=== PATIENT | male | born 1980 | race African-American/Black ===

== ENCOUNTER 2022-08-28 09:35 | Emergency (ER) | payer SELFPAY ==
[2022-08-28 09:46] VITALS: BP 116/88; PULSE 116; RESP 18; TEMP 39.1; O2SAT 100
[2022-08-28] MEDS: KETOROLAC (*BKC) 60 MG/2 ML VIAL IM (10:11)
[2022-08-28 10:34] LABS: Appearance Urine Clear (Clear); Bacteria Urine None Seen /hpf; Bilirubin Urine 1+ (Negative); Blood Urine 1+ (Negative); Color Urine Dark Yellow (Yellow); Glucose Urine UA Negative (Negative); Ketones Urine 1+ mg/dL (Negative); Leukocyte Esterase Ur Trace LEU/UL (Negative); Nitrate Urine Negative (Negative); Non Pathogenic Casts 0-2; Protein Urine Trace mg/dL (Negative); Specific Grav Ur 1.019 (1.001-1.035); Squamous Epithelial Cell Urine Occasional /hpf (Few); WBC Urine 0-5 /hpf
[2022-08-28 10:36] LABS: Add Urine Microscopic? YES
[2022-08-28 10:47] LABS: Strep Group A RT-PCR NOT DETECTED (Negative)
[2022-08-28 11:04] VITALS: BP 104/83; PULSE 107; RESP 16; TEMP 38.6; O2SAT 98
[2022-08-28 12:11] VITALS: BP 121/88; PULSE 94; RESP 18; O2SAT 99
[2022-08-28 12:43] LABS: Influenza A QL RT-PCR Negative (Negative); Influenza B QL RT-PCR Negative (Negative); SARS-CoV-2 RNA PCR Negative
[2022-08-28 13:10] VITALS: BP 129/77; PULSE 98; RESP 18; TEMP 38.8; O2SAT 99
--- NOTE | 2022-08-28 13:23 | ED.FEVER ---
HPI - Fever General Chief Complaint: Fever Stated Complaint: high BP, headache, bodyches, fever, chills Time Seen by Provider: 08/28/22 09:42 History of Present Illness HPI Narrative: Patient is a 42-year-old male who presents ER with fever. Found to have temperature of 102 ?F today. Patient reports body aches with frontal headache as well as sinus congestion postnasal drip. No cough. No known sick contacts. No chest pain or chest pressure. No dyspnea on exertion. He is without abdominal discomfort. He does report some burning urination that may be because he is dry. Related Data Allergies Allergy/AdvReac Type Severity Reaction Status Date / Time No Known Allergies Allergy Verified 08/28/22 09:45 Review of Systems Review of Systems: All systems reviewed & are unremarkable except as noted in HPI and below Constitutional: Constitutional: Denies chills, Denies fatigue and Reports fever(s) ENT: Reports nasal congestion and Reports sore throat Cardiovascular: Cardiovascular: Denies chest pain, Denies rapid heart rate and Denies radiating jaw, neck or arm pain Respiratory: Respiratory: Denies cough and Denies dyspnea Genitourinary: Genitourinary: Denies hematuria, Denies oliguria, Reports dysuria and Denies urinary frequency Musculoskeletal: Musculoskeletal: Reports myalgias, Denies arthralgias and Denies joint swelling Neurologic: Reports headache(s), Denies focal weakness and Denies numbness PMFSH Past Medical History Medical History (Updated 08/28/22 @ 18:51 by Yoseph Bah MD) Healthy adult male Surgical History Surgical History (Updated 08/28/22 @ 18:51 by Yoseph Bah MD) No pertinent past surgical history Exam Narrative: GENERAL: Well-appearing, well-nourished, and in no acute distress. HEAD: Normocephalic, atraumatic. ENT: Mucous membranes moist. No pharyngeal erythema or tonsillar exudate. No tonsillar hypertrophy. Uvula midline and nonedematous. NECK: Supple. Full range of motion without meningismus. CHEST: Clear to auscultation. No respiratory distress. HEART: Tachycardic and regular. Normal peripheral pulses. ABDOMEN: Soft, nontender, nondistended. EXTREMITIES: Normal range of motion. No edema. SKIN: Warm, dry, no rash. NEURO: Alert and oriented x3. PSYCH: Normal mood and affect. 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 Still with some mild frontal headache. No visual changes or numbness or tingling. No neck stiffness. Not felt to be meningitis. Patient has sinus congestion and sore throat and this is felt to be reflective of an upper respiratory infection. Discharge home with supportive therapy. Patient verbalized understanding treatment plan. Vital Signs Vital signs: Vital Signs Temperature 102.3 F H 08/28/22 09:46 Pulse Rate 116 H 08/28/22 09:46 Respiratory Rate 18 08/28/22 09:46 Blood Pressure 116/88 08/28/22 09:46 Pulse Oximetry 100 08/28/22 09:46 Oxygen Delivery Room Air 08/28/22 09:46 Temperature 102 F H 08/28/22 13:10 Pulse Rate 96 08/28/22 13:29 Respiratory Rate 16 08/28/22 13:29 Blood Pressure 124/83 08/28/22 13:29 Pulse Oximetry 100 08/28/22 13:29 Oxygen Delivery Room Air 08/28/22 09:46 MDM - Fever Lab Data Labs: Lab Results 08/28/22 08/28/22 08/28/22 Range/Units 10:09 10:09 10:20 Urine Color Dark yellow (Yellow) Urine Appearance Clear (Clear) Urine pH 6.0 (5.0-9.0) Ur Specific Lyons 1.019 (1.001-1.035) Urine Protein Trace (Negative) mg/dL Urine Glucose (UA) Negative (Negative) mg/dL Urine Ketones 1+ H (Negative) mg/dL Ur Blood (Man) 1+ H (Negative) Urine Nitrate Negative (Negative) Urine Bilirubin 1+ H (Negative) Urine Urobilinogen 2.0 H (<2.0) mg/dL Leukocyte Esterase Rfl Trace H (Negative) CHANDU/UL Urine RBC 3-5 H (0-2) /hpf Urine WBC 0-5 /hpf Ur Squamous Epith Cells Occ
[2022-08-28] MEDS: ACETAMINOPHEN 500 MG TABLET 1000 MG PO (13:26)
[2022-08-28 13:29] VITALS: BP 124/83; PULSE 96; RESP 16; O2SAT 100
== END 2022-08-28 13:35 | disposition home or self-care (01) ==
PROVIDERS: Emergency Provider Emergency Medicine
DX: J06.9 Acute upper respiratory infection, unspecified (principal); Z20.822 Contact with and (suspected) exposure to COVID-19
CPT/HCPCS: 81001; 87636; 87651; 96372; 99283; A9270; J1885

== ENCOUNTER 2022-08-30 19:02 | Emergency (ER) | payer SELFPAY ==
[2022-08-30 19:04] VITALS: BP 158/90; PULSE 95; RESP 16; TEMP 37; O2SAT 100
[2022-08-30 19:34] VITALS: RESP 18
[2022-08-30] MEDS: LORazepam INJ (*CRX) 2 MG/ML VIAL 0.5 MG IV PUSH (20:15)
[2022-08-30] MEDS: SODIUM CHLORIDE 0.9% IV 2,000 ML 999 ML IV CONT (20:15)
[2022-08-30 20:16] VITALS: BP 135/88; PULSE 82; RESP 19; O2SAT 100
--- NOTE | 2022-08-30 20:17 | ED.GENADULT ---
HPI - General Adult General Chief complaint: Extremity Problem,Nontraumatic Stated complaint: upper extremities locking up Time Seen by Provider: 08/30/22 19:21 History of Present Illness HPI narrative: This is a 42-year-old male presenting to ED with a chief complaint of his upper body locking up. Patient was diagnosed with a URI at our hospital several days ago. He was discharged on multiple medications. He took double his normal dose of pseudoephedrine. afterwards he became feeling very anxious and felt tingling around his mouth and cramping in his hands. He is concerned that he is having a stroke. Denies weakness, facial droop, dysphagia dysarthria or any other neurologic deficit. No fever chills chest pain difficulty breathing, abdominal pain. Related Data Allergies Allergy/AdvReac Type Severity Reaction Status Date / Time No Known Allergies Allergy Verified 08/30/22 19:33 [facility], [facility] Past Medical History Medical History Healthy adult male Surgical History Surgical History No pertinent past surgical history Exam Narrative: APPEARANCE: No apparent distress. Head: atraumatic. EYES: EOMI, NOSE: Atraumatic NECK: Trachea midline RESPIRATORY: No increased rate of breathing, clear to auscultation CARDIOVASCULAR: RRR, ABDOMINAL: Non-distended MUSCULOSKELETAl: No obvious deformities NEURO: Alert. Cranial nerves 2-12 grossly intact. Sensation light touch, motor function cerebellar function intact for 4 extremities. Gait exam was normal. SKIN:: Warm, dry. Normal color PSYCHIATRIC: anxious Course Vital Signs Vital signs: Vital Signs Temperature 98.6 F 08/30/22 19:04 Pulse Rate 95 08/30/22 19:04 Respiratory Rate 16 08/30/22 19:04 Blood Pressure 158/90 H 08/30/22 19:04 Pulse Oximetry 100 08/30/22 19:04 Oxygen Delivery Room Air 08/30/22 19:04 Temperature 98.6 F 08/30/22 19:04 Pulse Rate 95 08/30/22 19:04 Respiratory Rate 18 08/30/22 19:34 Blood Pressure 158/90 H 08/30/22 19:04 Pulse Oximetry 100 08/30/22 19:04 Oxygen Delivery Room Air 08/30/22 19:04 Medical Decision Making [facility] Narrative Medical decision making narrative: -Presentation: 42-year-old male presenting with perioral tingling and hand cramping after taking too much pseudoephedrine. 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 He has no neurologic findings on exam. Presentation is not consistent with stroke. -Procedures: none -Interventions: 0.5 mg Ativan, 2 L normal saline -Shared decision making / Disposition: patient's symptoms are likely due to anxiety and hyperventilation after taking too much pseudoephedrine. Patient has been given fluids and Ativan. Condition is improved. Will be discharged home. Instructed to take appropriate amounts of medication. -RX Vital Signs Vital Signs: Vital Signs Temperature 98.6 F 08/30/22 19:04 Pulse Rate 95 08/30/22 19:04 Respiratory Rate 16 08/30/22 19:04 Blood Pressure 158/90 H 08/30/22 19:04 Pulse Oximetry 100 08/30/22 19:04 Oxygen Delivery Room Air 08/30/22 19:04 Temperature 98.6 F 08/30/22 19:04 Pulse Rate 95 08/30/22 19:04 Respiratory Rate 18 08/30/22 19:34 Blood Pressure 158/90 H 08/30/22 19:04 Pulse Oximetry 100 08/30/22 19:04 Oxygen Delivery Room Air 08/30/22 19:04 Discharge Plan Discharge Clinical Impression: Anxiety, Acute dehydration, Drug side ef
[2022-08-30 20:22] LABS: Glucose Point of Care 76 mg/dl (65-105)
[2022-08-30 20:50] VITALS: PULSE 92; RESP 18; O2SAT 100
[2022-08-30 20:53] VITALS: BP 138/89; PULSE 88; RESP 15; O2SAT 99
[2022-08-30 21:01] VITALS: BP 149/95; PULSE 94; RESP 20; O2SAT 100
== END 2022-08-30 21:49 | disposition home or self-care (01) ==
PROVIDERS: Emergency Provider Emergency Medicine
DX: T44.991A Poisoning by other drug primarily affecting the autonomic nervous system, accidental (unintentional), initial encounter (principal); R20.2 Paresthesia of skin; F41.9 Anxiety disorder, unspecified; E86.0 Dehydration; R25.2 Cramp and spasm
CPT/HCPCS: 82948; 96361; 96374; 99284; J2060; J7030

== ENCOUNTER 2022-09-10 16:13 | Inpatient (IN) | payer SELFPAY ==
[2022-09-10] VITALS (8 sets, daily range): BP systolic 121–148; BP diastolic 75–91; PULSE 90–114; RESP 16–21; TEMP 37.1–39.3; O2SAT 97–100; BMI 34.0
--- NOTE | ~2022-09-10 | CT_ITS ---
Clinical Indication: Fever, cough, abdominal discomfort CT Scan of the Neck, Chest, Abdomen, and Pelvis with Contrast: Technique: Contiguous sections were acquired throughout the neck, chest, abdomen, and pelvis after in travenous administration of 100 cc of Omnipaque 350. Dose reduction technique was used on this scan by utilizing automated exposure control and iterative reconstruction technique. The dose-length produ ct (DLP) was 2262.34 mGy-cm. COMPARISON: Abdominopelvic CT dated 09/10/2022 Findings: Thyroid gland is enlarged and multinodular, most consistent with multinodular goiter. No ly mphadenopathy seen in the neck. No soft tissue mass or fluid collection evident in the neck. Paraphar yngeal fat preserved bilaterally. Parotid and submandibular glands are unremarkable. Visualized paranasal sinuses are clear. Visualized aerodigestive tract unremarkable. Vascular structu res in the neck enhance normally. There is no evidence of any significant mediastinal, hilar or axillary lymphadenopathy. The mediastin al soft tissues and vascular structures appear normal. There is no evidence of pleural or pericardial effusion. The lungs are clear, aside from a calcified right basilar granuloma. The liver, spleen, pancreas, gallbladder, adrenals and kidneys are within normal limits. No evidence of aortic aneurysm. No lymphadenopathy. No bowel obstruction or bowel wall thickening. There is no evidence to suggest acute appendicitis. Urinary bladder is unremarkable. Prostate gland and seminal vesicles are unremarkable. No ascites. Impression: Enlarged multinodular goiter. No other significant findings. Reviewed, dictated and finalized at [facility]. Impression: Enlarged multinodular goiter. No other significant findings.
--- NOTE | ~2022-09-10 | US_ITS ---
US right upper quadrant INDICATION: Elevated liver enzymes PROCEDURE: Realtime right upper abdominal ultrasound. COMPARISON: No prior studies for comparison. FINDINGS: The pancreas is normal without focal mass or pancreatic ductal dilation. Liver echotexture is normal without focal mass or intrahepatic biliary dilatation. There is normal directional flow i n the portal vein. The gallbladder is normal without stones, gallbladder wall thickening or pericholecystic fluid. Comm on bile duct measures 5.7 mm. No sonographic Ruiz's sign. IMPRESSION: 1: Normal limited abdominal ultrasound. Reviewed, dictated and finalized at location B.
--- NOTE | ~2022-09-10 | CT_ITS ---
EXAMINATION: CT abdomen pelvis w con INDICATION: Fever, abscess TECHNIQUE: Computed tomographic images of the abdomen and pelvis were obtained after the administrati on of 100 cc of Omnipaque 350 intravenous contrast. The dose-length product (DLP) was 916.35 mGy-cm. Automated exposure control and iterative reconstruction technique were employed. COMPARISON: None available FINDINGS: Cardiomegaly is noted. There is mild wall thickening of the distal esophagus. There is mild atelectasis of the lung bases. There is a trace pericardial effusion. The liver, spleen, pancreas, g allbladder, and adrenal glands are normal. The kidneys are unremarkable. No pathologically enlarged a bdominal or pelvic lymph nodes are identified. No free intraperitoneal gas or evidence of bowel obstr uction. The appendix is normal. IMPRESSION: 1. Mild wall thickening of the distal esophagus which could reflect esophagitis. 2. Cardiomegaly. Reviewed, dictated and finalized at location F. IMPRESSION: 1. Mild wall thickening of the distal esophagus which could reflect esophagitis . 2. Cardiomegaly.
--- NOTE | ~2022-09-10 | XR_ITS ---
EXAMINATION: XR chest 2V DATE: 09/10/2022 17:17 INDICATION: Fever and bodyaches TECHNIQUE: Frontal and lateral views of the chest are obtained COMPARISON: None available FINDINGS: The lungs are free of acute opacities. No pleural effusion or pneumothorax. Cardiomegaly is noted. There is mild thoracic spondylosis. IMPRESSION: 1. Cardiomegaly. Reviewed, dictated and finalized at location F. IMPRESSION: 1. Cardiomegaly.
[2022-09-10 17:43] LABS: Basophils Percent Auto 0.2 % (0.2-1.2); Eosinophils Percent Auto 0.2 % (0-4.4); Hematocrit 36.9 % (42.0-52.0); Hemoglobin 12.2 g/dL (14.0-18.0); Immature Granulocyte Percent A 0.8 % (0-0.5); Lymphocytes Absolute Auto 1.57 K/mm3 (0.9-3.2); Lymphocytes Percent Auto 12.7 % (18.3-44.2); Mean Corpuscular HGB Conc 33.1 g/dl (32-36); Mean Corpuscular Hemoglobin 28.4 pg (26-34); Mean Platelet Volume 8.5 fl (7.4-10.4); Monocytes Absolute Auto 0.8 K/mm3 (0.1-0.6); Monocytes Percent Auto 6.6 % (2.6-8.5); Neutrophils Absolute Auto 9.8 K/mm3 (1.3-6.7); Neutrophils Percent Auto 79.5 % (45.5-73.1); Platelet Count Result 442 k/mm3 (150-375); Red Blood Count 4.29 M/mm3 (4.6-6.20); Red Cell Distribution Width 13.7 % (11.5-14.5); White Blood Count 12.4 K/mm3 (4.5-10.0)
[2022-09-10] MEDS: SODIUM CHLORIDE 0.9% IV 3,200 ML/1,000 ML BAG 999 ML IV CONT ×4 (17:48→20:13)
--- NOTE | 2022-09-10 17:48 | ED.FEVER ---
HPI - Fever General Chief Complaint: Fever Stated Complaint: fever Time Seen by Provider: 09/10/22 16:50 Source: patient, RN notes reviewed and old records reviewed Mode of arrival: ambulatory Limitations: no limitations History of Present Illness HPI Narrative: This is a 42 year old male who presents for evaluation of fever. He states that he has been having fevers for 3 weeks. HE was evaluated 2 weeks ago for fever and he was diagnosed with URI. He states he has continued to have fever, body aches. HE feels like he is dehydration. He denies chest pain, shortness of breath, vomiting. He reports mild nonproductive cough. He had 1 episode of diarrhea today. He denies foreign travel, insect or tick bites. HE denies camping. HE denies IV drug use. He denies rash or wounds. Related Data Home Medications Medication Instructions Recorded Confirmed Excedrin Extra Strength 250 mg PO Q4-6H 09/10/22 09/10/22 Allergies Allergy/AdvReac Type Severity Reaction Status Date / Time No Known Allergies Allergy Verified 09/10/22 16:47 Review of Systems Constitutional: Constitutional: Reports chills, Reports fever(s) and Denies weakness Cardiovascular: Cardiovascular: Denies syncope, Denies rapid heart rate, Denies irregular heart rhythm, Denies leg edema and Denies dyspnea Respiratory: Respiratory: Denies chest congestion, Reports cough, Denies hemoptysis, Denies excessive phlegm production and Denies dyspnea Gastrointestinal: Gastrointestinal: Denies abdominal pain, Denies hematochezia, Reports diarrhea and Denies vomiting Genitourinary: Genitourinary: Denies hematuria, Denies dysuria, Denies penile discharge and Denies testicular pain Musculoskeletal: Musculoskeletal: Reports myalgias, Denies joint swelling, Denies loss of height and Denies muscle weakness Integumentary/Breasts: Skin/Breast: Denies rash Neurologic: Denies syncope, Denies focal weakness and Denies weakness PMFSH Past Medical History Medical History Healthy adult male Surgical History Surgical History No pertinent past surgical history Family History Family History (Updated 09/10/22 @ 21:46 by Lida Quiroz RN) Other Diabetes mellitus Hypertension Social History Social History Smoking status: Never smoker Alcohol intake: former Substance use: unknown Substance use type: marijuana Lack of Transportation: No Lack of Food: Never True Current Housing: I Have Housing Concerned About Future Housing: No Difficulty Paying Gas/Electric Bills: No Difficulty Paying for Meds: No Currently Unemployed: No Education: High School Diploma/GED Difficulty w/ Childcare or Family Care: No Spiritual care concerns: No Exam Narrative: HEAD: Normocephalic, atraumatic EYES: PERRLA and EOMI, conjunctiva clear without discharge THROAT:Mucous membranes moist, Oropharynx normal without erythema, exudate, peritonsillar swelling or fluctuance NECK: Supple, without lymphadenopathy or mass RESPIRATORY: No respiratory distress, Airway patent, Respirations non-labored, Clear to auscultation without rales, rhonchi or wheeze ABDOMEN: Soft, nontender, nondistended, normal active bowel sounds. No masses. No rebound or guarding, No organomegaly. EXTREMITIES: No edema, normal strength with full range of motion. SKIN: Warm, dry, normal color without rash NEURO: Alert and oriented x3. CN 2-12 grossly intact. No focal deficits. PSYCH: Normal mood and affect. Const: General: no acute distress Nutritional Appearance: obese Orientation/consciousness: patient oriented x3 Other: appears to not feel well Cardio: Rate: tachycardic Rhythm: regular rhythm Heart sounds: no murmurs GI: GI Palp: Yes Soft to palpation, Yes Tenderness to palpation present (GI) (mild dif
[2022-09-10 17:56] LABS: Appearance Urine Clear (Clear); Bacteria Urine None Seen /hpf; Bilirubin Urine 1+ (Negative); Blood Urine Negative (Negative); Color Urine Dark Yellow (Yellow); Glucose Urine UA Negative (Negative); Ketones Urine 1+ mg/dL (Negative); Leukocyte Esterase Ur 1+ LEU/UL (Negative); Need Manual Microscopic Reviewed; Nitrate Urine Positive (Negative); Non Pathogenic Casts 0-2; Protein Urine 1+ mg/dL (Negative); RBC Urine 0-2 /hpf (0-2); Specific Grav Ur 1.021 (1.001-1.035); Squamous Epithelial Cell Urine Occasional /hpf (Few); Urobilinogen Urine >=8.0 mg/dL (<2.0); WBC Urine 0-5 /hpf; pH Urine 6.5 (5.0-9.0)
[2022-09-10 18:00] LABS: INR 1.2; Prothrombin Time 15.5 Seconds (11.1-14.7)
[2022-09-10 18:01] LABS: Partial Thromboplastin Time 32.4 SECONDS (22.3-36.8)
[2022-09-10 18:18] LABS: Alanine Aminotransferase 68 U/L (6-50); Albumin Level 3.6 g/dL (3.5-5.1); Alkaline Phosphatase 197 U/L (38-126); Anion Gap 8 mmol/L (8-16); Aspartate Amino Transferase 46 U/L (17-59); Bilirubin,Total 1.2 mg/dL (0.2-1.3); Blood Urea Nitrogen 9 mg/dL (9-20); CRP 21.7 mg/dL (<1.0); Calcium 8.6 mg/dL (8.4-10.2); Carbon Dioxide 25 mmol/L (22-30); Chloride 101 mmol/L (98-107); Estimated Glomerular Filt Rate > 60; Glucose 95 mg/dL (65-110); Lipase 155 U/L (23-300); Potassium 4.2 mmol/L (3.4-5.0); Sodium 134 mmol/L (137-145)
[2022-09-10 18:19] LABS: Add Urine Microscopic? YES
[2022-09-10 18:26] LABS: Influenza A QL RT-PCR Negative (Negative); Influenza B QL RT-PCR Negative (Negative); SARS-CoV-2 RNA PCR Negative (Negative)
[2022-09-10] MEDS: cefTRIAXone 2 GM/NS 100 ML 2 GM/100 ML BAG IVPB (19:36)
[2022-09-10] MEDS: IBUPROFEN IV 800 MG/200 ML 800 MG/200 ML BAG 400 MG IVPB (20:48)
--- NOTE | 2022-09-10 21:24 | PM.IMHP ---
H&P: HPI History of Present Illness Date/Time: 09/10/22 21:24 Chief Complaint: Fever Narrative: 42-year-old previously healthy male who presents the ER with 3 weeks of intermittent fever. He reports that he came to the ER on the complaining of headache body aches fevers and chills. He is diagnosed with the URI in discharged home. He was also noted to have some high blood pressure at that time. He came back to the ER on the due to his upper body ?locking up?. His symptoms occurred after taking twice the normal dose of pseudoephedrine. He became anxious and was having tingling around his mouth and cramping in his hands. He was given some fluids diagnosed with anxiety, dehydration and side effect of drugs. He returns today due to continued fevers. He reports he has been having fevers daily for 3 weeks. His fevers have been as high as 102. Is been associated with some fatigue. He has had some decreased appetite. He has had generalized myalgias. He has noticed some blood-tinged urine. He denies history of kidney stones. He reports that his UA a few days ago in the ER with demonstrated urine and upon review of records he had 1+ blood. His urine at that time also had trace esterase. He reports some mild dysuria last week but that has since resolved. He denies any penile discharge or exposures to STDs. He states that he is in a committed relationship and denies high risk factors for STDs. He had 1 episode of mushy stools today. He denies any abdominal pain or flank pain. He has had no travel. He has had no tick bites or insect exposure. He has no history of IV drug use. He has not had any rashes or areas of skin breakdown. He reports that his feet are chronically dry and he is concerned that he may have diabetes due to how his feet look. He does not have a history of diabetes but most of his family members have diabetes with associated complications including end-stage renal disease. He does have a symptoms of frequent GERD. He has GERD symptoms up to 3 times a week. He has never had an EGD or colonoscopy he does not have a primary care physician. His fiancee tells him that he snores loudly and and occasionally stops breathing in his sleep. He has never had a sleep study. He denies nasal congestion, rhinorrhea. He does have a mild nonproductive cough current urine was but he denies that the time my evaluation Review of Systems Review of Systems: 12 systems were reviewed with pertinent positives and negatives per HPI. Except as documented in the HPI, all other systems were reviewed and are negative. [facility] Past Medical History Medical History (Updated 09/11/22 @ 08:36 by Ronda Go DO) Obese Surgical History Surgical History (Updated 09/11/22 @ 08:32 by Ronda Go DO) Amputation of finger of right hand The patient had traumatic injury when he closed his hand in a rail car door and had subsequent debridement and trimming of the stump of the pinky of the right hand and reconstruction of the ring finger Family History Family History (Updated 09/11/22 @ 08:34 by Ronda Go DO) Mother Diabetes mellitus End-stage renal disease on hemodialysis Heart disease Hypertension Cerebrovascular accident Father Diabetes mellitus End-stage renal disease on hemodialysis Hypertension Heart disease Sibling Suicide Social History Social History (Updated 09/11/22 @ 08:43 by Ronda Go DO) Social History: Code status: Full code Surrogate decision maker: Valentín Smoking status: Never smoker Alcohol intake: current Drinks per week: 20 Alcohol use details: The patient drinks 2 beers and 1 mixed drink every day and binge drinks on the weekends. Substance use: former Substance use type: marijuana Lack of Transportation: No Lack of Food: Never True Current Housing: I Have Housing Concerned About Future Housing: No Difficulty Paying Gas/Electric Bills: No D
--- NOTE | 2022-09-10 21:55 | ADMGEN ---
This patient, Behzad Wallace, was admitted to Medical Room 347-. Patient/family oriented to hospital policies and general routines including ID bracelet, bed and alarms, visiting hours, pain management, procedures, bathroom and other care routines, personal items, smoking policy, room service/diet, and visiting hours. Information on how to activate the Rapid Response Team has been discussed. Patient/Family are encouraged to report perceived risks to care and to ask questions if they do not understand what they are told or what they should do.
[2022-09-11] VITALS (11 sets, daily range): BP systolic 117–135; BP diastolic 70–81; PULSE 64–107; RESP 14–18; TEMP 36.7–38.8; O2SAT 98–99
[2022-09-11] MEDS: MELATONIN 5 MG TABLET PO (00:08)
[2022-09-11 01:45] LABS: Monoscreen Negative (Negative); Negative Monotest Control Negative (Negative); Positive Monotest Control Positive (Positive)
[2022-09-11] MEDS: ACETAMINOPHEN 325 MG TABLET 650 MG PO ×4 (04:46→23:30)
[2022-09-11 05:45] LABS: Basophils Percent Auto 0.1 % (0.2-1.2); Eosinophils Absolute Auto 0.1 K/mm3 (0-0.3); Eosinophils Percent Auto 0.6 % (0-4.4); Hematocrit 34.2 % (42.0-52.0); Hemoglobin 11.3 g/dL (14.0-18.0); Immature Granulocyte Absolute 0.08 K/mm3 (0.00-0.031); Immature Granulocyte Percent A 0.8 % (0-0.5); Lymphocytes Absolute Auto 0.76 K/mm3 (0.9-3.2); Mean Corpuscular Hemoglobin 28.5 pg (26-34); Mean Corpuscular Volume 86.1 fl (80-100); Mean Platelet Volume 8.2 fl (7.4-10.4); Monocytes Absolute Auto 0.7 K/mm3 (0.1-0.6); Monocytes Percent Auto 7.6 % (2.6-8.5); Neutrophils Absolute Auto 7.9 K/mm3 (1.3-6.7); Neutrophils Percent Auto 82.9 % (45.5-73.1); Platelet Count Result 401 k/mm3 (150-375); Red Blood Count 3.97 M/mm3 (4.6-6.20); Red Cell Distribution Width 13.5 % (11.5-14.5); White Blood Count 9.6 K/mm3 (4.5-10.0)
[2022-09-11 06:00] LABS: Alanine Aminotransferase 91 U/L (6-50); Albumin Level 3.2 g/dL (3.5-5.1); Alkaline Phosphatase 205 U/L (38-126); Anion Gap 3 mmol/L (8-16); Aspartate Amino Transferase 69 U/L (17-59); Bilirubin,Total 1.3 mg/dL (0.2-1.3); Blood Urea Nitrogen 7 mg/dL (9-20); Calcium 8.3 mg/dL (8.4-10.2); Carbon Dioxide 27 mmol/L (22-30); Chloride 104 mmol/L (98-107); Estimated CRCL calculation 195 ml/min; Estimated Glomerular Filt Rate > 60; Glucose 105 mg/dL (65-110); Potassium 4.1 mmol/L (3.4-5.0); Sodium 134 mmol/L (137-145)
[2022-09-11 09:09] LABS: Hemoglobin A1C 5.3 % (<5.7)
[2022-09-11] MEDS: ENOXAPARIN 40 MG/0.4 ML SYRINGE SUB-Q (09:50)
[2022-09-11] MEDS: PANTOPRAZOLE 40 MG TABLET PO (09:50)
--- NOTE | 2022-09-11 11:39 | PM.IMPN ---
Progress Note: A&P Assessment and Plan (1) Sepsis: Code(s): A41.9 - Sepsis, unspecified organism Status: Acute Assessment and Plan: Patient meets sepsis criteria with tachycardia, tachypnea, fever, and leukocytosis. Blood cultures pending. UA was abnormal with leukocytosis trace and nitrates. The patient's urine did not trigger a reflex culture however urine culture has been added. Patient received 2 g of Rocephin in the ER as well as to 30 mL/kilos bolus. Will continue Rocephin 1 g IV daily. (2) Pyuria: Code(s): R82.81 - Pyuria Status: Acute Assessment and Plan: Antibiotics as above (3) Transaminitis: Code(s): R74.01 - Elevation of levels of liver transaminase levels Status: Acute Assessment and Plan: Patient has some transaminitis possibly due to sepsis versus chronic alcohol use. Continue to monitor (4) Alcohol use disorder: Code(s): F10.90 - Alcohol use, unspecified, uncomplicated Status: Acute (5) Snoring: Code(s): R06.83 - Snoring Status: Acute Assessment and Plan: Patient would benefit from outpatient sleep study. Will order ApneaLink for screening. Subjective Date/time seen: 09/11/22 11:39 Interval history: Stable Review of Systems Review of Systems: 12 systems were reviewed with pertinent positives and negatives per HPI. Except as documented in the HPI, all other systems were reviewed and are negative. Exam Narrative: Weight 107.5 kg BMI 34 Const: Other: Obese, no acute distress HENMT: Other: Crowded posterior oropharynx, large neck circumference, mucous membranes are tacky, no oral pharyngeal erythema Eyes: Other: Pupils are equal and reactive, mild scleral icterus, no conjunctival pallor Neck: Other: No lymphadenopathy, no thyromegaly, trachea mid Resp: Other: Clear to auscultation bilaterally, no increased work of breathing Cardio: Other: Sinus tachycardia, 2+ bilateral radial pedal pulses, no JVD GI: Other: Soft, nontender, nondistended, positive bowel sounds Skin: Other: Warm to touch, non jaundice, no pallor Neuro: Other: Alert oriented, speech is clear, no facial asymmetry, no localizing neurologic deficits noted during the course of conversation Extrem: Other: No clubbing, cyanosis or edema, no foot wounds but plantar skin is Dr. With multiple plantar warts noted, grossly overgrown toenails that are sick and discolored Psych: Other: Appropriate mood and affect, pleasant and cooperative, judgment and insight intact Objective Data Vital Signs Vital Signs: Vital Signs - 24 hr 09/10/22 16:25 09/10/22 18:30 09/10/22 16:44 Temperature 102.8 F H 100.9 F H Pulse Rate 114 H 110 H Respiratory Rate 20 21 H Blood Pressure 148/88 H 127/78 Pulse Oximetry 98 97 Oxygen Delivery Room Air 09/10/22 17:35 09/10/22 17:46 09/10/22 18:16 Temperature Pulse Rate 103 H 103 H 98 Respiratory Rate 16 21 H 21 H Blood Pressure 128/91 H 134/88 123/75 Pulse Oximetry 99 98 98 Oxygen Delivery 09/10/22 19:35 09/10/22 21:44 09/11/22 04:32 Temperature 98.8 F 100.3 F H Pulse Rate 90 93 107 H Respiratory Rate 17 18 18 Blood Pressure 121/82 134/79 135/81 Pulse Oximetry 99 100 98 Oxygen Delivery 09/11/22 04:46 09/11/22 06:12 09/11/22 09:51 Temperature 100.3 F H 100.2 F H 101.9 F H Pulse Rate Respiratory Rate Blood Pressure Pulse Oximetry Oxygen Delivery 09/11/22 10:51 Temperature 100.6 F H Pulse Rate Respiratory Rate Blood Pressure Pulse Oximetry Oxygen Delivery Intake/Output Intake/Output: Intake & Output 09/08/22 09/09/22 09/10/22 09/11/22 23:59 23:59 23:59 23:59 Intake Total 3600 / 3600 690 / 690 Balance 3600 / 3600 690 / 690 Meds/Results Medications: Active Medications Generic Name Dose Route Start Last Admin Trade Name Braulioq LOCO Vicente
[2022-09-11] MEDS: LACTATED RINGERS 1,000 ML 100 ML IV CONT (18:18)
[2022-09-11] MEDS: guaiFENesin 600 MG/DEXTROMETHORPHAN 30 MG SR TAB 12 HR 1 TAB PO (19:04)
--- NOTE | 2022-09-11 22:17 | PCRCNOTE ---
Respiratory Therapy: Pt placed on apnea monitor at 2210 on room air.
[2022-09-12] VITALS (15 sets, daily range): BP systolic 119–128; BP diastolic 64–88; PULSE 84–99; RESP 14–22; TEMP 37–39.4; O2SAT 96–99
[2022-09-12] MEDS: ACETAMINOPHEN/ASPIRIN/CAFFEINE 250-250-65 MG TABLET 1 TABLET PO ×2 (02:47→08:58)
[2022-09-12] MEDS: guaiFENesin 600 MG/DEXTROMETHORPHAN 30 MG SR TAB 12 HR 1 TAB PO ×2 (05:00→18:04)
[2022-09-12 06:30] LABS: Hepatitis B Surface Antigen Negative (Negative)
[2022-09-12 06:35] LABS: HAV RESULT Negative (Negative); Hepatitis B Core IgM Result Negative (Negative)
[2022-09-12 06:47] LABS: Hepatitis C Virus Antibody Negative (Negative)
[2022-09-12] MEDS: PANTOPRAZOLE 40 MG TABLET PO (08:58)
[2022-09-12] MEDS: ENOXAPARIN 40 MG/0.4 ML SYRINGE SUB-Q (08:58)
--- NOTE | 2022-09-12 11:00 | PM.IMPN ---
Progress Note: A&P Assessment and Plan (1) Sepsis: Code(s): A41.9 - Sepsis, unspecified organism Status: Acute Assessment and Plan: Blood cultures pending. UA was abnormal with leukocytosis trace and nitrates. The patient's urine did not trigger a reflex culture however urine culture has been added. Will continue Rocephin 1 g IV daily. (2) Pyuria: Code(s): R82.81 - Pyuria Status: Acute Assessment and Plan: Antibiotics as above (3) Transaminitis: Code(s): R74.01 - Elevation of levels of liver transaminase levels Status: Acute Assessment and Plan: Patient has some transaminitis possibly due to sepsis versus chronic alcohol use. Continue to monitor (4) Alcohol use disorder: Code(s): F10.90 - Alcohol use, unspecified, uncomplicated Status: Acute (5) Snoring: Code(s): R06.83 - Snoring Status: Acute Assessment and Plan: Patient would benefit from outpatient sleep study. Will order [facility] for screening. Subjective Date/time seen: 09/12/22 11:00 Interval history: Patient reports headache and body ache Review of Systems Review of Systems: 12 systems were reviewed with pertinent positives and negatives per HPI. Except as documented in the HPI, all other systems were reviewed and are negative. Exam Narrative: Weight 107.5 kg BMI 34 Const: Other: Obese, no acute distress HENMT: Other: Crowded posterior oropharynx, large neck circumference, mucous membranes are tacky, no oral pharyngeal erythema Eyes: Other: Pupils are equal and reactive, mild scleral icterus, no conjunctival pallor Neck: Other: No lymphadenopathy, no thyromegaly, trachea mid Resp: Other: Clear to auscultation bilaterally, no increased work of breathing Cardio: Other: Sinus tachycardia, 2+ bilateral radial pedal pulses, no JVD GI: Other: Soft, nontender, nondistended, positive bowel sounds Skin: Other: Warm to touch, non jaundice, no pallor Neuro: Other: Alert oriented, speech is clear, no facial asymmetry, no localizing neurologic deficits noted during the course of conversation Extrem: Other: No clubbing, cyanosis or edema, no foot wounds but plantar skin is Dr. With multiple plantar warts noted, grossly overgrown toenails that are sick and discolored Psych: Other: Appropriate mood and affect, pleasant and cooperative, judgment and insight intact Objective Data Vital Signs Vital Signs: Vital Signs - 24 hr 09/11/22 14:00 09/11/22 17:35 09/11/22 18:21 Temperature 99.6 F 100.6 F H 100.6 F H Pulse Rate 64 Respiratory Rate 14 Blood Pressure 119/70 Pulse Oximetry 99 09/11/22 19:05 09/11/22 22:00 09/11/22 23:30 Temperature 100.4 F H 98.1 F 100.0 F H Pulse Rate 92 Respiratory Rate 18 Blood Pressure 117/79 Pulse Oximetry 99 09/12/22 01:00 09/12/22 02:42 09/12/22 01:20 Temperature 99.2 F 99.1 F 99.2 F Pulse Rate Respiratory Rate Blood Pressure Pulse Oximetry 09/12/22 06:00 09/12/22 09:00 09/12/22 10:47 Temperature 98.6 F 100.1 F H 99.7 F H Pulse Rate 84 Respiratory Rate 22 H Blood Pressure 119/88 Pulse Oximetry 96 Intake/Output Intake/Output: Intake & Output 09/09/22 09/10/22 09/11/22 09/12/22 23:59 23:59 23:59 23:59 Intake Total 3600 / 3600 1480 / 1480 240 / 240 Balance 3600 / 3600 1480 / 1480 240 / 240 Meds/Results Medications: Active Medications Generic Name Dose Route Start Last Admin Trade Name Freq PRN Reason Stop Dose Admin Acetaminophen 650 mg 09/10/22 21:26 09/11/22 23:30 Acetaminophen 325 Mg Tablet PO 650 mg Q4H PRN Administration Mild Pain (1-3) or Fever Acetaminophen/Aspirin/Caffeine 1 tablet 09/12/22 02:42 09/12/22 08:58 Acetaminophen/Aspirin/Caffeine 250-250-65 Mg Tablet PO 10/11/22 07:14 1 tablet Q4-6H PRN Administration Headache
[2022-09-12] MEDS: ACETAMINOPHEN 325 MG TABLET 650 MG PO ×3 (12:37→22:00)
[2022-09-13] VITALS (13 sets, daily range): BP systolic 106–134; BP diastolic 57–96; PULSE 84–103; RESP 18–20; TEMP 36.8–39.5; O2SAT 97–100
--- NOTE | 2022-09-13 | ECHO_ITS ---
Patient Info Name: Behzad Wallace Age: 42 years : 1980 Gender: Male Ht: 70 in Wt: 236 lbs BSA: 2.34 m2 HR: 94 bpm BP: 125 / 69 mmHg Technical Quality: Fair Exam Date: 09/13/2022 1:40 PM Exam Location: [facility] Pulmonary Exam Room: [facility] Patient Status: Inpatient Admit Date: 09/13/2022 Staff Ordering Physician: Norma Ledezma MD Vocal Music Teacher: Lydia Grace RDCS Attending Provider: Bin Yang MD Referring Physician: Darien HENDRIX; Exam Type: CA echo doppler color flow Study Info Indications - fevers Complete two-dimensional, color flow and Doppler transthoracic echocardiogram is performed. Summary 1. Complete two-dimensional, color flow and Doppler transthoracic echocardiogram is performed. 2. Left ventricular chamber dimension is normal. 3. Left ventricular systolic function is normal, estimated at 60-65%. 4. The left ventricular diastolic function is normal. 5. E/e' 8 is minimally elevated. 6. There is trace mitral valve regurgitation. 7. There is trace tricuspid valve regurgitation. 8. No pulmonary hypertension, estimated pulmonary arterial systolic pressure is 35 mmHg. 9. There is trace pulmonic regurgitation. 10. There is trivial pericardial effusion. Left Ventricle E/e' 8 is minimally elevated. Left ventricular chamber dimension is normal. Left ventricular systolic function is normal, estimated at 60-65%. The left ventricular diastolic function is normal. Right Ventricle Right ventricular chamber dimension is normal. Right ventricular systolic function is normal. Left Atria Left atrial chamber dimension is normal. Right Atria Right atrial chamber dimension is normal. Aortic Valve The aortic valve is trileaflet. There is no aortic valve stenosis. There is no aortic valve regurgitation. Pulmonic Valve There is trace pulmonic regurgitation. Mitral Valve There is no mitral valve stenosis. There is trace mitral valve regurgitation. Tricuspid Valve There is trace tricuspid valve regurgitation. No pulmonary hypertension, estimated pulmonary arterial systolic pressure is 35 mmHg. Pericardium/Pleural There is trivial pericardial effusion. Inferior Vena Cava Normal inferior vena cava with >50% collapse upon inspiration consistent with normal right atrial pressure, 5 mmHg. Aorta The aortic root size at the sinus of Valsalva is normal. Left Ventricular Outflow Tract Name Value Normal LVOT 2D LVOT Diameter 2.1 cm LVOT Doppler LVOT Peak Gradient 5 mmHg LVOT Mean Gradient 2 mmHg LVOT VTI 19 cm LVOT VTI/AV VTI Ratio 1.0 LVOT Stroke Volume 65 ml LVOT CO 15.1 l/min LVOT CI 6.5 l/min/m2 Pulmonic Valve Name Value Normal RVOT Doppler RVOT Peak Gradient 1 mmHg
[2022-09-13] MEDS: ACETAMINOPHEN 325 MG TABLET 650 MG PO ×4 (02:30→18:29)
[2022-09-13] MEDS: ACETAMINOPHEN/ASPIRIN/CAFFEINE 250-250-65 MG TABLET 1 TABLET PO ×2 (03:56→09:17)
[2022-09-13] MEDS: guaiFENesin 600 MG/DEXTROMETHORPHAN 30 MG SR TAB 12 HR 1 TAB PO ×2 (06:16→17:16)
[2022-09-13] MEDS: PANTOPRAZOLE 40 MG TABLET PO (09:18)
[2022-09-13] MEDS: ENOXAPARIN 40 MG/0.4 ML SYRINGE SUB-Q (09:18)
--- NOTE | 2022-09-13 13:17 | PM.IMPN ---
Progress Note: A&P Assessment and Plan (1) Sepsis: Code(s): A41.9 - Sepsis, unspecified organism Status: Acute Assessment and Plan: Blood cultures pending. Uc are negative. ESR and CRP ordered, ECHO ordered. continue Rocephin 1 g IV daily. continue to watch in hospital if fevers do not subside consider LP (2) Pyuria: Code(s): R82.81 - Pyuria Status: Acute Assessment and Plan: Antibiotics as above (3) Transaminitis: Code(s): R74.01 - Elevation of levels of liver transaminase levels Status: Acute Assessment and Plan: Patient has some transaminitis possibly due to sepsis versus chronic alcohol use. Continue to monitor (4) Alcohol use disorder: Code(s): F10.90 - Alcohol use, unspecified, uncomplicated Status: Acute (5) Snoring: Code(s): R06.83 - Snoring Status: Acute Assessment and Plan: Patient would benefit from outpatient sleep study. [employer] for screening. Subjective Date/time seen: 09/13/22 13:17 Interval history: Patient reports body aches and fevers today Review of Systems Review of Systems: No specific complaints Exam Const: Other: Obese, no acute distress Eyes: Other: Pupils are equal and reactive, mild scleral icterus, no conjunctival pallor Neck: Other: No lymphadenopathy, no thyromegaly, trachea mid Resp: Other: Clear to auscultation bilaterally, no increased work of breathing Cardio: Other: Sinus tachycardia, 2+ bilateral radial pedal pulses, no JVD GI: Other: Soft, nontender, nondistended, positive bowel sounds Skin: Other: Warm to touch, non jaundice, no pallor Neuro: Other: Alert oriented, speech is clear, no facial asymmetry, no localizing neurologic deficits noted during the course of conversation Extrem: Other: No clubbing, cyanosis or edema, no foot wounds but plantar skin is Dr. With multiple plantar warts noted, grossly overgrown toenails that are sick and discolored Psych: Other: Appropriate mood and affect, pleasant and cooperative, judgment and insight intact Objective Data Vital Signs Vital Signs: Vital Signs - 24 hr 09/12/22 13:37 09/12/22 14:00 09/12/22 18:04 Temperature 37.6 C H 37.6 C H 39.4 C H Pulse Rate 96 Respiratory Rate 14 Blood Pressure 124/64 Pulse Oximetry 99 Oxygen Delivery 09/12/22 21:00 09/12/22 19:30 09/12/22 21:37 Temperature 37.8 C H 37.8 C H 38.6 C H Pulse Rate 99 Respiratory Rate 18 Blood Pressure 128/73 Pulse Oximetry 99 Oxygen Delivery 09/12/22 22:00 09/12/22 23:03 09/13/22 02:30 Temperature 38.6 C H 37.7 C H 37.9 C H Pulse Rate Respiratory Rate Blood Pressure Pulse Oximetry Oxygen Delivery 09/13/22 03:19 09/13/22 05:24 09/13/22 06:16 Temperature 37.5 C 37.8 C H 37.8 C H Pulse Rate 84 Respiratory Rate 18 Blood Pressure 125/69 Pulse Oximetry 99 Oxygen Delivery 09/13/22 09:19 09/13/22 09:19 09/13/22 11:06 Temperature 37.8 C H 37.8 C H Pulse Rate Respiratory Rate Blood Pressure Pulse Oximetry Oxygen Delivery Room Air 09/13/22 12:06 Temperature 36.8 C Pulse Rate Respiratory Rate Blood Pressure Pulse Oximetry Oxygen Delivery Intake/Output Intake/Output: Intake & Output 09/10/22 09/11/22 09/12/22 09/13/22 23:59 23:59 23:59 23:59 Intake Total 3600 1480 1270 740 Balance 3600 1480 1270 740 Meds/Results Medications: Active Medications Generic Name Dose Route Start Last Admin Trade Name Freq PRN Reason Stop Dose Admin Acetaminophen 650 mg 09/10/22 21:26 09/13/22 11:06 Acetaminophen 325 Mg Tablet PO 650 mg Q4H PRN Administration Mild Pain (1-3) or Fever Acetaminophen/Aspirin/Caffeine 1 tablet 09/12/22 02:42 09/13/22 09:17 Acetaminophen/Aspirin/Caffeine 250-250-65 Mg Tablet PO 10/11/22 07:14 1 tablet Q4-6H PRN Administratio
[2022-09-13 14:40] LABS: Erythrocyte Sedimentation Rate 126 mm/hr (0-20)
[2022-09-13] MEDS: IBUPROFEN 400 MG TABLET 800 MG PO (20:19)
[2022-09-14] VITALS (8 sets, daily range): BP systolic 98–135; BP diastolic 55–81; PULSE 100–110; RESP 14–18; TEMP 37.1–38.7; O2SAT 98–100
[2022-09-14] MEDS: ACETAMINOPHEN 325 MG TABLET 650 MG PO ×3 (05:16→20:47)
[2022-09-14] MEDS: guaiFENesin 600 MG/DEXTROMETHORPHAN 30 MG SR TAB 12 HR 1 TAB PO ×2 (05:16→17:23)
[2022-09-14] MEDS: ENOXAPARIN 40 MG/0.4 ML SYRINGE SUB-Q (09:23)
[2022-09-14] MEDS: PANTOPRAZOLE 40 MG TABLET PO (09:23)
--- NOTE | 2022-09-14 11:25 | PM.IMPN ---
Progress Note: A&P Assessment and Plan (1) Sepsis: Code(s): A41.9 - Sepsis, unspecified organism Status: Acute Assessment and Plan: Blood cultures no growth to date. UA was negative. Do it that ESR is 126. CRP is elevated at at 18. ECHO negative. Had been on Rocephin Ted neck rigidity LFTs are elevated Rickettsial illness possible Empirically start doxycycline. Rocephin CT chest abdomen pelvis CT neck (2) Pyuria: Code(s): R82.81 - Pyuria Status: Acute Assessment and Plan: Antibiotics as above (3) Transaminitis: Code(s): R74.01 - Elevation of levels of liver transaminase levels Status: Acute Assessment and Plan: Patient has some transaminitis possibly due to sepsis versus chronic alcohol use. Continue to monitor (4) Alcohol use disorder: Code(s): F10.90 - Alcohol use, unspecified, uncomplicated Status: Acute (5) Snoring: Code(s): R06.83 - Snoring Status: Acute Assessment and Plan: Patient would benefit from outpatient sleep study. [employer] for screening. Subjective Date/time seen: 09/14/22 11:25 Interval history: Patient still has ongoing fever. Body aches. No joint swelling. No rash no neck pain. Reports headache. Associated with. Workup has been negative. Echo reviewed Review of Systems Review of Systems: All systems reviewed & are unremarkable except as noted in HPI and below Exam Narrative: GENERAL: The patient is well developed, not in acute distress HEENT: Nonicteric sclerae, PERRLA, EOMI. Oropharynx clear. Moist mucous membranes. Conjunctivae appear well perfused. CHEST: Chest wall is nontender. HEART: Regular rate and rhythm without murmur, rubs, or gallops LUNGS: Clear to auscultation bilaterally. no respiratory distress ABDOMEN: Soft, positive bowel sounds, non-tender, no organomegaly. SKIN: No rash, no excessive bruising, petechiae, or purpura. NEUROLOGIC: Cranial nerves II-XII intact, alert and oriented x 3, no gross motor deficits no neck rigidity EXTREMITIES: no edema, cyanosis or clubbing Objective Data Vital Signs Vital Signs: Vital Signs - 24 hr 09/13/22 12:06 09/13/22 14:00 09/13/22 18:29 Temperature 98.3 F 99.0 F 103.1 F H Pulse Rate 103 H Respiratory Rate 18 Blood Pressure 134/96 H Pulse Oximetry 100 Oxygen Delivery 09/13/22 19:40 09/13/22 20:19 09/13/22 21:39 Temperature 102.7 F H 101.5 F H 98.8 F Pulse Rate 96 Respiratory Rate 20 Blood Pressure 106/57 L Pulse Oximetry 97 Oxygen Delivery 09/13/22 20:00 09/14/22 05:15 09/14/22 05:16 Temperature 100.8 F H 100.8 F H Pulse Rate 96 110 H Respiratory Rate 20 16 Blood Pressure 98/55 L Pulse Oximetry 97 98 Oxygen Delivery Room Air 09/14/22 09:27 09/14/22 09:30 Temperature 98.7 F Pulse Rate Respiratory Rate Blood Pressure Pulse Oximetry Oxygen Delivery Room Air Intake/Output Intake/Output: Intake & Output 09/11/22 09/12/22 09/13/22 09/14/22 23:59 23:59 23:59 23:59 Intake Total 1480 1270 1820 590 Balance 1480 1270 1820 590 Meds/Results Medications: Active Medications Generic Name Dose Route Start Last Admin Trade Name Freq PRN Reason Stop Dose Admin Acetaminophen 650 mg 09/10/22 21:26 09/14/22 05:16 Acetaminophen 325 Mg Tablet PO 650 mg Q4H PRN Administration Mild Pain (1-3) or Fever Acetaminophen/Aspirin/Caffeine 1 tablet 09/12/22 02:42 09/13/22 09:17 Acetaminophen/Aspirin/Caffeine 250-250-65 Mg Tablet PO 10/11/22 07:14 1 tablet Q4-6H PRN Administration Headache Doxycycline Hyclate 100 mg 09/14/22 12:00 Doxycycline Hyclate 100 Mg Tablet PO Q12HR DARIUS Enoxaparin Sodium 40 mg 09/11/22 09:00 09/14/22 09:23 Enoxaparin 40 Mg/0.4 Ml Syringe SUB-Q 40 mg DAILY DARIUS Administration Guaifenesin/Dextromethorphan 1 tab 09/11/22 18:00 09/14/22 05:16 Guaifenesin 600 Mg/Dextromethorphan 30 Mg Sr T
[2022-09-14] MEDS: DOXYCYCLINE HYCLATE 100 MG TABLET PO ×2 (12:26→20:00)
[2022-09-14 12:44] LABS: Basophils Percent Auto 0.1 % (0.2-1.2); Eosinophils Percent Auto 0.3 % (0-4.4); Hematocrit 36.4 % (42.0-52.0); Immature Granulocyte Absolute 0.11 K/mm3 (0.00-0.031); Immature Granulocyte Percent A 0.7 % (0-0.5); Lymphocytes Absolute Auto 1.25 K/mm3 (0.9-3.2); Lymphocytes Percent Auto 8.5 % (18.3-44.2); Mean Corpuscular Hemoglobin 28.5 pg (26-34); Mean Corpuscular Volume 86.5 fl (80-100); Mean Platelet Volume 8.5 fl (7.4-10.4); Monocytes Absolute Auto 0.9 K/mm3 (0.1-0.6); Monocytes Percent Auto 6.2 % (2.6-8.5); Neutrophils Absolute Auto 12.4 K/mm3 (1.3-6.7); Neutrophils Percent Auto 84.2 % (45.5-73.1); Platelet Count Result 405 k/mm3 (150-375); Red Blood Count 4.21 M/mm3 (4.6-6.20); Red Cell Distribution Width 13.3 % (11.5-14.5); White Blood Count 14.8 K/mm3 (4.5-10.0)
[2022-09-14 13:15] LABS: Alanine Aminotransferase 72 U/L (6-50); Albumin Level 3.6 g/dL (3.5-5.1); Alkaline Phosphatase 197 U/L (38-126); Anion Gap 9 mmol/L (8-16); Aspartate Amino Transferase 40 U/L (17-59); Bilirubin,Total 0.8 mg/dL (0.2-1.3); Blood Urea Nitrogen 13 mg/dL (9-20); Calcium 8.7 mg/dL (8.4-10.2); Carbon Dioxide 26 mmol/L (22-30); Chloride 99 mmol/L (98-107); Creatine Kinase 57 U/L (55-170); Estimated CRCL calculation 127 ml/min; Estimated Glomerular Filt Rate > 60; Glucose 120 mg/dL (65-110); Magnesium 2.4 mg/dL (1.6-2.3); Potassium 4.2 mmol/L (3.4-5.0); Sodium 134 mmol/L (137-145)
[2022-09-14 13:15] LABS: Appearance Urine Clear (Clear); Bacteria Urine None Seen /hpf; Bilirubin Urine 1+ (Negative); Blood Urine Negative (Negative); Color Urine Dark Yellow (Yellow); Glucose Urine UA Negative (Negative); Ketones Urine Trace mg/dL (Negative); Leukocyte Esterase Ur Trace LEU/UL (NEGATIVE); Need Manual Microscopic Reviewed; Nitrate Urine Positive (Negative); Non Pathogenic Casts 0-2; Protein Urine 1+ mg/dL (Negative); Specific Grav Ur 1.029 (1.001-1.035); Squamous Epithelial Cell Urine Occasional /hpf (Few); WBC Urine 0-5 /hpf (0-3); pH Urine 5.5 (5.0-9.0)
[2022-09-14 13:17] LABS: Add Urine Microscopic? YES
[2022-09-15] VITALS (9 sets, daily range): BP systolic 119–144; BP diastolic 74–84; PULSE 100–113; RESP 18–19; TEMP 36.1–39.4; O2SAT 96–100
[2022-09-15 05:44] LABS: Basophils Percent Auto 0.2 % (0.2-1.2); Eosinophils Absolute Auto 0.1 K/mm3 (0-0.3); Eosinophils Percent Auto 0.4 % (0-4.4); Hematocrit 35.3 % (42.0-52.0); Hemoglobin 11.6 g/dL (14.0-18.0); Immature Granulocyte Absolute 0.12 K/mm3 (0.00-0.031); Immature Granulocyte Percent A 1.1 % (0-0.5); Lymphocytes Absolute Auto 1.62 K/mm3 (0.9-3.2); Lymphocytes Percent Auto 14.5 % (18.3-44.2); Mean Corpuscular HGB Conc 32.9 g/dl (32-36); Mean Corpuscular Hemoglobin 28.6 pg (26-34); Mean Corpuscular Volume 87.2 fl (80-100); Mean Platelet Volume 8.4 fl (7.4-10.4); Monocytes Absolute Auto 0.8 K/mm3 (0.1-0.6); Monocytes Percent Auto 6.9 % (2.6-8.5); Neutrophils Absolute Auto 8.6 K/mm3 (1.3-6.7); Neutrophils Percent Auto 76.9 % (45.5-73.1); Platelet Count Result 408 k/mm3 (150-375); Red Blood Count 4.05 M/mm3 (4.6-6.20); Red Cell Distribution Width 13.4 % (11.5-14.5); White Blood Count 11.2 K/mm3 (4.5-10.0)
[2022-09-15] MEDS: guaiFENesin 600 MG/DEXTROMETHORPHAN 30 MG SR TAB 12 HR 1 TAB PO ×2 (05:47→17:04)
[2022-09-15 05:57] LABS: Alanine Aminotransferase 65 U/L (6-50); Albumin Level 3.6 g/dL (3.5-5.1); Alkaline Phosphatase 182 U/L (38-126); Anion Gap 6 mmol/L (8-16); Aspartate Amino Transferase 37 U/L (17-59); Bilirubin,Total 0.6 mg/dL (0.2-1.3); Blood Urea Nitrogen 10 mg/dL (9-20); Carbon Dioxide 27 mmol/L (22-30); Chloride 102 mmol/L (98-107); Estimated CRCL calculation 144 ml/min; Estimated Glomerular Filt Rate > 60; Glucose 97 mg/dL (65-110); Potassium 4.4 mmol/L (3.4-5.0); Sodium 135 mmol/L (137-145)
[2022-09-15] MEDS: ACETAMINOPHEN 325 MG TABLET 650 MG PO ×2 (05:59→17:04)
[2022-09-15] MEDS: ENOXAPARIN 40 MG/0.4 ML SYRINGE SUB-Q (08:53)
[2022-09-15] MEDS: DOXYCYCLINE HYCLATE 100 MG TABLET PO ×2 (08:53→20:01)
[2022-09-15] MEDS: PANTOPRAZOLE 40 MG TABLET PO (08:54)
--- NOTE | 2022-09-15 10:41 | PM.IMPN ---
Progress Note: A&P Assessment and Plan (1) Sepsis: Code(s): A41.9 - Sepsis, unspecified organism Status: Acute Assessment and Plan: Blood cultures no growth to date. UA was negative. Do it that ESR is 126. CRP is elevated at at 18. ECHO negative. Had been on Rocephin Ted neck rigidity LFTs are elevated Rickettsial illness possible Empirically start doxycycline. Rocephin CT chest abdomen pelvis CT neck With no acute findings. except for multi goiter. Will check TSH (2) Pyuria: Code(s): R82.81 - Pyuria Status: Acute Assessment and Plan: Antibiotics as above (3) Transaminitis: Code(s): R74.01 - Elevation of levels of liver transaminase levels Status: Acute Assessment and Plan: Patient has some transaminitis possibly due to sepsis versus chronic alcohol use. Continue to monitor (4) Alcohol use disorder: Code(s): F10.90 - Alcohol use, unspecified, uncomplicated Status: Acute (5) Snoring: Code(s): R06.83 - Snoring Status: Acute Assessment and Plan: Patient would benefit from outpatient sleep study. [facility] for screening. apnea link with AHI of 5.6 7 4 SHIRLEY sleep study as an outpatient basis Subjective Date/time seen: 09/15/22 10:41 Interval history: digoxin and started yesterday. Still had fever overnight. Feeling well this morning. No other complaints. CT scan reviewed with the patient. Review of Systems Review of Systems: All systems reviewed & are unremarkable except as noted in HPI and below Exam Narrative: GENERAL: The patient is well developed, not in acute distress HEENT: Nonicteric sclerae, PERRLA, EOMI. Oropharynx clear. Moist mucous membranes. Conjunctivae appear well perfused. CHEST: Chest wall is nontender. HEART: Regular rate and rhythm without murmur, rubs, or gallops LUNGS: Clear to auscultation bilaterally. no respiratory distress ABDOMEN: Soft, positive bowel sounds, non-tender, no organomegaly. SKIN: No rash, no excessive bruising, petechiae, or purpura. NEUROLOGIC: Cranial nerves II-XII intact, alert and oriented x 3, no gross motor deficits no neck rigidity EXTREMITIES: no edema, cyanosis or clubbing Objective Data Vital Signs Vital Signs: Vital Signs - 24 hr 09/14/22 13:22 09/14/22 14:00 09/14/22 14:22 Temperature 99.9 F H 99.9 F H 99 F Pulse Rate 100 Respiratory Rate 14 Blood Pressure 135/81 Pulse Oximetry 100 Oxygen Delivery 09/14/22 20:00 09/14/22 20:47 09/14/22 20:59 Temperature 101.7 F H Pulse Rate 107 H Respiratory Rate 18 Blood Pressure 129/65 Pulse Oximetry 98 Oxygen Delivery Room Air 09/15/22 00:14 09/15/22 05:42 09/15/22 05:59 Temperature 100 F H 100.9 F H 100.9 F H Pulse Rate 100 Respiratory Rate 18 Blood Pressure 124/74 Pulse Oximetry 97 Oxygen Delivery Intake/Output Intake/Output: Intake & Output 09/12/22 09/13/22 09/14/22 09/15/22 23:59 23:59 23:59 23:59 Intake Total 1270 1820 2240 640 Output Total 200 Balance 1270 1820 2040 640 Meds/Results Medications: Active Medications Generic Name Dose Route Start Last Admin Trade Name Freq PRN Reason Stop Dose Admin Acetaminophen 650 mg 09/10/22 21:26 09/15/22 05:59 Acetaminophen 325 Mg Tablet PO 650 mg Q4H PRN Administration Mild Pain (1-3) or Fever Acetaminophen/Aspirin/Caffeine 1 tablet 09/12/22 02:42 09/13/22 09:17 Acetaminophen/Aspirin/Caffeine 250-250-65 Mg Tablet PO 10/11/22 07:14 1 tablet Q4-6H PRN Administration Headache Doxycycline Hyclate 100 mg 09/14/22 12:00 09/15/22 08:53 Doxycycline Hyclate 100 Mg Tablet PO 100 mg Q12HR DARIUS Administration Enoxaparin Sodium 40 mg 09/11/22 09:00 09/15/22 08:53 Enoxaparin 40 Mg/0.4 Ml Syringe SUB-Q 40 mg DAILY DARIUS Administration Guaifenesin/Dextromethorphan 1 tab 09/11/22 18:00 09/15/22 05:47 Guaifenesin 600 Mg/Dextromethorphan 30 Mg Sr Ta
[2022-09-15 11:09] LABS: Thyroid Stimulating Hormone Reflex 0.783 uIU/mL (0.465-4.68)
[2022-09-16] VITALS (7 sets, daily range): BP systolic 119–151; BP diastolic 70–83; PULSE 99–115; RESP 18–19; TEMP 36.9–39; O2SAT 98–100
[2022-09-16 05:41] LABS: Basophils Percent Auto 0.2 % (0.2-1.2); Eosinophils Percent Auto 0.4 % (0-4.4); Hematocrit 33.6 % (42.0-52.0); Hemoglobin 10.9 g/dL (14.0-18.0); Immature Granulocyte Absolute 0.06 K/mm3 (0.00-0.031); Immature Granulocyte Percent A 0.7 % (0-0.5); Lymphocytes Absolute Auto 1.31 K/mm3 (0.9-3.2); Lymphocytes Percent Auto 14.6 % (18.3-44.2); Mean Corpuscular HGB Conc 32.4 g/dl (32-36); Mean Corpuscular Hemoglobin 28.1 pg (26-34); Mean Corpuscular Volume 86.6 fl (80-100); Mean Platelet Volume 8.5 fl (7.4-10.4); Monocytes Absolute Auto 0.7 K/mm3 (0.1-0.6); Monocytes Percent Auto 7.6 % (2.6-8.5); Neutrophils Absolute Auto 6.9 K/mm3 (1.3-6.7); Neutrophils Percent Auto 76.5 % (45.5-73.1); Platelet Count Result 356 k/mm3 (150-375); Red Blood Count 3.88 M/mm3 (4.6-6.20); Red Cell Distribution Width 13.2 % (11.5-14.5)
[2022-09-16] MEDS: ACETAMINOPHEN 325 MG TABLET 650 MG PO ×2 (05:48→15:48)
[2022-09-16] MEDS: guaiFENesin 600 MG/DEXTROMETHORPHAN 30 MG SR TAB 12 HR 1 TAB PO ×2 (05:48→18:11)
[2022-09-16 05:55] LABS: Alanine Aminotransferase 77 U/L (6-50); Albumin Level 3.4 g/dL (3.5-5.1); Alkaline Phosphatase 164 U/L (38-126); Anion Gap 5 mmol/L (8-16); Aspartate Amino Transferase 49 U/L (17-59); Bilirubin,Total 0.6 mg/dL (0.2-1.3); Blood Urea Nitrogen 7 mg/dL (9-20); Calcium 8.8 mg/dL (8.4-10.2); Carbon Dioxide 28 mmol/L (22-30); Chloride 102 mmol/L (98-107); Estimated CRCL calculation 166 ml/min; Estimated Glomerular Filt Rate > 60; Glucose 100 mg/dL (65-110); Magnesium 2.1 mg/dL (1.6-2.3); Potassium 4.2 mmol/L (3.4-5.0); Sodium 135 mmol/L (137-145)
[2022-09-16] MEDS: HYDROmorphone HCL INJ (*CRX) 1 MG/ML SYR 0.5 MG IV PUSH (06:28)
[2022-09-16] MEDS: PANTOPRAZOLE 40 MG TABLET PO (08:53)
[2022-09-16] MEDS: DOXYCYCLINE HYCLATE 100 MG TABLET PO ×2 (08:54→20:12)
[2022-09-16] MEDS: ENOXAPARIN 40 MG/0.4 ML SYRINGE SUB-Q (08:54)
--- NOTE | 2022-09-16 14:10 | PM.IMPN ---
Progress Note: A&P Assessment and Plan (1) Sepsis: Code(s): A41.9 - Sepsis, unspecified organism Status: Acute Assessment and Plan: Blood cultures no growth to date. UA was negative. Do it that ESR is 126. CRP is elevated at at 18. ECHO negative. Had been on Rocephin Ted neck rigidity LFTs are elevated Rickettsial illness possible Empirically start doxycycline. Rocephin CT chest abdomen pelvis CT neck With no acute findings. except for multi goiter. tsh normal (2) Pyuria: Code(s): R82.81 - Pyuria Status: Acute Assessment and Plan: Antibiotics as above (3) Transaminitis: Code(s): R74.01 - Elevation of levels of liver transaminase levels Status: Acute Assessment and Plan: Patient has some transaminitis possibly due to sepsis versus chronic alcohol use. Continue to monitor ct with negative liver (4) Alcohol use disorder: Code(s): F10.90 - Alcohol use, unspecified, uncomplicated Status: Acute Assessment and Plan: advised abstinance from alcohol (5) Snoring: Code(s): R06.83 - Snoring Status: Acute Assessment and Plan: Patient would benefit from outpatient sleep study. [facility] for screening. apnea link with AHI of 5.6 7 4 SH[facility]LEY sleep study as an outpatient basis Subjective Date/time seen: 09/16/22 14:10 Interval history: still had fever last evening. feeling bettte rotday. afebrile overngiht. no nausea, vomiting. Review of Systems Review of Systems: All systems reviewed & are unremarkable except as noted in HPI and below Exam Narrative: GENERAL: The patient is well developed, not in acute distress HEENT: Nonicteric sclerae, PERRLA, EOMI. Oropharynx clear. Moist mucous membranes. Conjunctivae appear well perfused. CHEST: Chest wall is nontender. HEART: Regular rate and rhythm without murmur, rubs, or gallops LUNGS: Clear to auscultation bilaterally. no respiratory distress ABDOMEN: Soft, positive bowel sounds, non-tender, no organomegaly. SKIN: No rash, no excessive bruising, petechiae, or purpura. NEUROLOGIC: Cranial nerves II-XII intact, alert and oriented x 3, no gross motor deficits no neck rigidity EXTREMITIES: no edema, cyanosis or clubbing Objective Data Vital Signs Vital Signs: Vital Signs - 24 hr 05/05/23 14:36 09/15/22 17:04 09/15/22 18:29 Temperature 100.2 F H 103 F H 100.6 F H Pulse Rate 113 H Respiratory Rate 18 Blood Pressure 144/84 H Pulse Oximetry 100 Oxygen Delivery 09/15/22 18:00 09/15/22 20:12 09/15/22 20:00 Temperature 100.7 F H 97 F L Pulse Rate 101 H Respiratory Rate 19 Blood Pressure 119/77 Pulse Oximetry 96 Oxygen Delivery Room Air 09/16/22 05:27 09/16/22 08:53 Temperature 99.6 F 98.4 F Pulse Rate 99 Respiratory Rate 19 Blood Pressure 124/70 Pulse Oximetry 98 Oxygen Delivery Intake/Output Intake/Output: Intake & Output 09/13/22 09/14/22 09/15/22 09/16/22 23:59 23:59 23:59 23:59 Intake Total 1820 2240 1430 1430 Output Total 200 Balance 1820 2040 1430 1430 Meds/Results Medications: Active Medications Generic Name Dose Route Start Last Admin Trade Name Freq PRN Reason Stop Dose Admin Acetaminophen 650 mg 09/10/22 21:26 09/16/22 05:48 Acetaminophen 325 Mg Tablet PO 650 mg Q4H PRN Administration Mild Pain (1-3) or Fever Acetaminophen/Aspirin/Caffeine 1 tablet 09/12/22 02:42 09/13/22 09:17 Acetaminophen/Aspirin/Caffeine 250-250-65 Mg Tablet PO 10/11/22 07:14 1 tablet Q4-6H PRN Administration Headache Doxycycline Hyclate 100 mg 09/14/22 12:00 09/16/22 08:54 Doxycycline Hyclate 100 Mg Tablet PO 100 mg Q12HR DARIUS Administration Enoxaparin Sodium 40 mg 09/11/22 09:00 09/16/22 08:54 Enoxaparin 40 Mg/0.4 Ml Syringe SUB-Q 40 mg DAILY DARIUS Administration Guaifenesin/Dextromethorphan 1 tab 09/11/22 18:00 09/16/22 05:48 Guaifenesin 600 Mg/Dextromethorphan 3
[2022-09-16 15:34] LABS: Lactate Dehydrogenase 115 U/L (120-246)
[2022-09-16 15:37] LABS: Rheumatoid Factor < 12.0 IU/ML (<12)
[2022-09-16 16:14] LABS: HIV 1/2 Ab P24 Ag Result Negative (Negative)
[2022-09-16] MEDS: GABAPENTIN 300 MG CAPSULE PO (20:31)
[2022-09-17] VITALS (8 sets, daily range): BP systolic 127–140; BP diastolic 77–88; PULSE 95–108; RESP 18–100; TEMP 37.2–39.3; O2SAT 18–97
[2022-09-17] MEDS: guaiFENesin 600 MG/DEXTROMETHORPHAN 30 MG SR TAB 12 HR 1 TAB PO (05:44)
[2022-09-17] MEDS: DOXYCYCLINE HYCLATE 100 MG TABLET PO ×2 (08:46→20:23)
[2022-09-17] MEDS: PANTOPRAZOLE 40 MG TABLET PO (08:46)
[2022-09-17] MEDS: ENOXAPARIN 40 MG/0.4 ML SYRINGE SUB-Q (08:47)
[2022-09-17] MEDS: ACETAMINOPHEN/ASPIRIN/CAFFEINE 250-250-65 MG TABLET 1 TABLET PO (09:33)
[2022-09-17 10:37] LABS: Basophils Percent Auto 0.1 % (0.2-1.2); Eosinophils Absolute Auto 0.1 K/mm3 (0-0.3); Eosinophils Percent Auto 0.5 % (0-4.4); Hematocrit 36.9 % (42.0-52.0); Hemoglobin 12.1 g/dL (14.0-18.0); Immature Granulocyte Absolute 0.08 K/mm3 (0.00-0.031); Immature Granulocyte Percent A 0.9 % (0-0.5); Lymphocytes Absolute Auto 1.41 K/mm3 (0.9-3.2); Lymphocytes Percent Auto 15.4 % (18.3-44.2); Mean Corpuscular HGB Conc 32.8 g/dl (32-36); Mean Corpuscular Hemoglobin 28.7 pg (26-34); Mean Corpuscular Volume 87.4 fl (80-100); Mean Platelet Volume 8.4 fl (7.4-10.4); Monocytes Absolute Auto 0.5 K/mm3 (0.1-0.6); Monocytes Percent Auto 5.1 % (2.6-8.5); Neutrophils Absolute Auto 7.1 K/mm3 (1.3-6.7); Platelet Count Result 382 k/mm3 (150-375); Red Blood Count 4.22 M/mm3 (4.6-6.20); Red Cell Distribution Width 13.2 % (11.5-14.5); White Blood Count 9.1 K/mm3 (4.5-10.0)
[2022-09-17 13:26] LABS: Alanine Aminotransferase 93 U/L (6-50); Albumin Level 3.8 g/dL (3.5-5.1); Alkaline Phosphatase 190 U/L (38-126); Anion Gap 14 mmol/L (8-16); Aspartate Amino Transferase 54 U/L (17-59); Bilirubin,Total 0.7 mg/dL (0.2-1.3); Blood Urea Nitrogen 10 mg/dL (9-20); Calcium 9.2 mg/dL (8.4-10.2); Carbon Dioxide 19 mmol/L (22-30); Chloride 100 mmol/L (98-107); Estimated CRCL calculation 144 ml/min; Estimated Glomerular Filt Rate > 60; Glucose 156 mg/dL (65-110); Potassium 4.1 mmol/L (3.4-5.0); Sodium 133 mmol/L (137-145)
--- NOTE | 2022-09-17 14:13 | PM.IMPN ---
Progress Note: A&P Assessment and Plan (1) Sepsis: Code(s): A41.9 - Sepsis, unspecified organism Status: Acute Assessment and Plan: Blood cultures no growth to date. UA was negative. Do it that ESR is 126. CRP is elevated at at 18. ECHO negative. Had been on Rocephin Ted neck rigidity LFTs are elevated Rickettsial illness possible Empirically start doxycycline. Rocephin stopped CT chest abdomen pelvis CT neck With no acute findings. except for multi goiter. tsh normal If continues to have fever discussed need for lumbar puncture to further evaluate. Will check for malaria (2) Pyuria: Code(s): R82.81 - Pyuria Status: Acute Assessment and Plan: Antibiotics as above (3) Transaminitis: Code(s): R74.01 - Elevation of levels of liver transaminase levels Status: Acute Assessment and Plan: Patient has some transaminitis possibly due to sepsis versus chronic alcohol use. Continue to monitor ct with negative liver (4) Alcohol use disorder: Code(s): F10.90 - Alcohol use, unspecified, uncomplicated Status: Acute Assessment and Plan: advised abstinance from alcohol (5) Snoring: Code(s): R06.83 - Snoring Status: Acute Assessment and Plan: Patient would benefit from outpatient sleep study. ApneaLink for screening. apnea link with AHI of 5.6 7 4 SH[facility] sleep study as an outpatient basis Subjective Date/time seen: 09/17/22 14:13 Interval history: He still spiked fever yesterday afternoon. Overall feels well no new complaints. Family at bedside discussed lumbar puncture if still continues to spike fever is going to think about it Review of Systems Review of Systems: All systems reviewed & are unremarkable except as noted in HPI and below Exam Narrative: GENERAL: The patient is well developed, not in acute distress HEENT: Nonicteric sclerae, PERRLA, EOMI. Oropharynx clear. Moist mucous membranes. Conjunctivae appear well perfused. CHEST: Chest wall is nontender. HEART: Regular rate and rhythm without murmur, rubs, or gallops LUNGS: Clear to auscultation bilaterally. no respiratory distress ABDOMEN: Soft, positive bowel sounds, non-tender, no organomegaly. SKIN: No rash, no excessive bruising, petechiae, or purpura. NEUROLOGIC: Cranial nerves II-XII intact, alert and oriented x 3, no gross motor deficits no neck rigidity EXTREMITIES: no edema, cyanosis or clubbing Objective Data Vital Signs Vital Signs: Vital Signs - 24 hr 09/16/22 15:48 09/16/22 16:45 09/16/22 20:44 Temperature 102.2 F H 99.5 F 99.7 F H Pulse Rate 102 H Respiratory Rate 18 Blood Pressure 119/71 Pulse Oximetry 99 09/17/22 05:45 Temperature 99 F Pulse Rate 95 Respiratory Rate 18 Blood Pressure 127/77 Pulse Oximetry 97 Intake/Output Intake/Output: Intake & Output 09/14/22 09/15/22 09/16/22 09/17/22 23:59 23:59 23:59 23:59 Intake Total 2240 1430 1430 540 Output Total 200 Balance 2040 1430 1430 540 Meds/Results Medications: Active Medications Generic Name Dose Route Start Last Admin Trade Name Freq PRN Reason Stop Dose Admin Acetaminophen 650 mg 09/10/22 21:26 09/16/22 15:48 Acetaminophen 325 Mg Tablet PO 650 mg Q4H PRN Administration Mild Pain (1-3) or Fever Acetaminophen/Aspirin/Caffeine 1 tablet 09/12/22 02:42 09/17/22 09:33 Acetaminophen/Aspirin/Caffeine 250-250-65 Mg Tablet PO 10/11/22 07:14 1 tablet Q4-6H PRN Administration Headache Doxycycline Hyclate 100 mg 09/14/22 12:00 09/17/22 08:46 Doxycycline Hyclate 100 Mg Tablet PO 100 mg Q12HR DARIUS Administration Enoxaparin Sodium 40 mg 09/11/22 09:00 09/17/22 08:47 Enoxaparin 40 Mg/0.4 Ml Syringe SUB-Q 40 mg DAILY DARIUS Administration Guaifenesin/Dextromethorphan 1 tab 09/11/22 18:00 09/17/22 05:44 Guaifenesin 600 Mg/Dextromethorphan 30 Mg Sr Tab 12 Hr PO 1 tab Q12H DARIUS Administration Mel[place]
[2022-09-17] MEDS: ACETAMINOPHEN 325 MG TABLET 650 MG PO ×2 (16:44→21:14)
[2022-09-17] MEDS: MELATONIN 5 MG TABLET PO (20:25)
[2022-09-18] VITALS (10 sets, daily range): BP systolic 111–124; BP diastolic 66–84; PULSE 92–96; RESP 16–18; TEMP 37–38; O2SAT 97–100
[2022-09-18 05:44] LABS: Basophils Percent Auto 0.2 % (0.2-1.2); Eosinophils Absolute Auto 0.1 K/mm3 (0-0.3); Eosinophils Percent Auto 0.7 % (0-4.4); Hematocrit 34.1 % (42.0-52.0); Immature Granulocyte Absolute 0.14 K/mm3 (0.00-0.031); Immature Granulocyte Percent A 1.4 % (0-0.5); Lymphocytes Absolute Auto 1.45 K/mm3 (0.9-3.2); Lymphocytes Percent Auto 14.5 % (18.3-44.2); Mean Corpuscular HGB Conc 32.3 g/dl (32-36); Mean Corpuscular Hemoglobin 27.8 pg (26-34); Mean Corpuscular Volume 86.1 fl (80-100); Mean Platelet Volume 8.3 fl (7.4-10.4); Monocytes Absolute Auto 0.7 K/mm3 (0.1-0.6); Monocytes Percent Auto 7.3 % (2.6-8.5); Neutrophils Absolute Auto 7.6 K/mm3 (1.3-6.7); Neutrophils Percent Auto 75.9 % (45.5-73.1); Platelet Count Result 370 k/mm3 (150-375); Red Blood Count 3.96 M/mm3 (4.6-6.20)
[2022-09-18 05:56] LABS: Alanine Aminotransferase 77 U/L (6-50); Albumin Level 3.4 g/dL (3.5-5.1); Alkaline Phosphatase 160 U/L (38-126); Anion Gap 3 mmol/L (8-16); Aspartate Amino Transferase 40 U/L (17-59); Bilirubin,Total 0.6 mg/dL (0.2-1.3); Blood Urea Nitrogen 9 mg/dL (9-20); Calcium 8.9 mg/dL (8.4-10.2); Carbon Dioxide 29 mmol/L (22-30); Chloride 102 mmol/L (98-107); Estimated CRCL calculation 166 ml/min; Estimated Glomerular Filt Rate > 60; Glucose 97 mg/dL (65-110); Magnesium 2.1 mg/dL (1.6-2.3); Potassium 4.2 mmol/L (3.4-5.0); Sodium 134 mmol/L (137-145)
[2022-09-18] MEDS: IBUPROFEN 400 MG TABLET PO ×2 (09:58→21:30)
[2022-09-18] MEDS: ENOXAPARIN 40 MG/0.4 ML SYRINGE SUB-Q (09:58)
[2022-09-18] MEDS: PANTOPRAZOLE 40 MG TABLET PO (09:59)
[2022-09-18] MEDS: DOXYCYCLINE HYCLATE 100 MG TABLET PO ×2 (09:59→20:12)
[2022-09-18] MEDS: FLUCONAZOLE 400 MG/NACL 200 ML 400 MG/200 ML BAG 100 MG IVPB (14:46)
--- NOTE | 2022-09-18 15:21 | PM.IMPN ---
Progress Note: A&P Assessment and Plan (1) Sepsis: Code(s): A41.9 - Sepsis, unspecified organism Status: Acute Assessment and Plan: Blood cultures no growth to date. UA was negative. Do it that ESR is 126. CRP is elevated at at 18. ECHO negative. Had been on Rocephin Ted neck rigidity LFTs are elevated Rickettsial illness possible Empirically start doxycycline. Rocephin stopped CT chest abdomen pelvis CT neck With no acute findings. except for multi goiter. tsh normal If continues to have fever discussed need for lumbar puncture to further evaluate. Will check for malaria TB test Will add empiric antifungal coverage with fluconazole (2) Pyuria: Code(s): R82.81 - Pyuria Status: Acute Assessment and Plan: Antibiotics as above (3) Transaminitis: Code(s): R74.01 - Elevation of levels of liver transaminase levels Status: Acute Assessment and Plan: Patient has some transaminitis possibly due to sepsis versus chronic alcohol use. Continue to monitor ct with negative liver (4) Alcohol use disorder: Code(s): F10.90 - Alcohol use, unspecified, uncomplicated Status: Acute Assessment and Plan: advised abstinance from alcohol (5) Snoring: Code(s): R06.83 - Snoring Status: Acute Assessment and Plan: Patient would benefit from outpatient sleep study. ApneaLink for screening. apnea link with AHI of 5.6 7 4 [facility] sleep study as an outpatient basis Subjective Date/time seen: 09/18/22 15:21 Interval history: He spiked fever again. Refuses to get lumbar puncture. No other complaints. Review of Systems Review of Systems: All systems reviewed & are unremarkable except as noted in HPI and below Exam Narrative: GENERAL: The patient is well developed, not in acute distress HEENT: Nonicteric sclerae, PERRLA, EOMI. Oropharynx clear. Moist mucous membranes. Conjunctivae appear well perfused. CHEST: Chest wall is nontender. HEART: Regular rate and rhythm without murmur, rubs, or gallops LUNGS: Clear to auscultation bilaterally. no respiratory distress ABDOMEN: Soft, positive bowel sounds, non-tender, no organomegaly. SKIN: No rash, no excessive bruising, petechiae, or purpura. NEUROLOGIC: Cranial nerves II-XII intact, alert and oriented x 3, no gross motor deficits no neck rigidity EXTREMITIES: no edema, cyanosis or clubbing Objective Data Vital Signs Vital Signs: Vital Signs - 24 hr 09/17/22 16:43 09/17/22 16:44 09/17/22 21:14 Temperature 101.7 F H 101.7 F H 102.7 F H Pulse Rate Respiratory Rate Blood Pressure Pulse Oximetry 09/17/22 21:25 09/17/22 22:14 09/18/22 05:15 Temperature 102.7 F H 100.4 F H 99.9 F H Pulse Rate 108 H 96 Respiratory Rate 100 H 18 Blood Pressure 140/88 115/66 Pulse Oximetry 18 L 97 09/18/22 08:19 09/18/22 09:58 09/18/22 12:00 Temperature 100.4 F H 100.2 F H 98.8 F Pulse Rate Respiratory Rate Blood Pressure Pulse Oximetry 09/18/22 14:11 09/18/22 10:55 Temperature 98.6 F 98.8 F Pulse Rate 92 Respiratory Rate 17 Blood Pressure 111/66 Pulse Oximetry 99 Intake/Output Intake/Output: Intake & Output 09/15/22 09/16/22 09/17/22 09/18/22 23:59 23:59 23:59 23:59 Intake Total 1430 1430 1570 970 Output Total 4 Balance 1430 1430 1570 966 Meds/Results Medications: Active Medications Generic Name Dose Route Start Last Admin Trade Name Freq PRN Reason Stop Dose Admin Acetaminophen 650 mg 09/10/22 21:26 09/17/22 21:14 Acetaminophen 325 Mg Tablet PO 650 mg Q4H PRN Administration Mild Pain (1-3) or Fever Acetaminophen/Aspirin/Caffeine 1 tablet 09/12/22 02:42 09/17/22 09:33 Acetaminophen/Aspirin/Caffeine 250-250-65 Mg Tablet PO 10/11/22 07:14 1 tablet Q4-6H PRN Administration Headache Doxycycline Hyclate 100 mg 09/14/22 12:00 09/18/22 09:59 Doxycycline Hyclate 100 Mg Tablet PO 100 mg Q12H
[2022-09-18] MEDS: ACETAMINOPHEN 325 MG TABLET 650 MG PO (19:12)
[2022-09-18] MEDS: MELATONIN 5 MG TABLET PO (20:12)
[2022-09-19 05:53] VITALS: BP 119/77; PULSE 88; RESP 16; TEMP 37.2; O2SAT 100
[2022-09-19 06:11] LABS: Basophils Percent Auto 0.3 % (0.2-1.2); Eosinophils Absolute Auto 0.1 K/mm3 (0-0.3); Hematocrit 34.5 % (42.0-52.0); Hemoglobin 11.2 g/dL (14.0-18.0); Immature Granulocyte Absolute 0.11 K/mm3 (0.00-0.031); Immature Granulocyte Percent A 1.4 % (0-0.5); Lymphocytes Absolute Auto 1.03 K/mm3 (0.9-3.2); Lymphocytes Percent Auto 13.1 % (18.3-44.2); Mean Corpuscular HGB Conc 32.5 g/dl (32-36); Mean Corpuscular Hemoglobin 28.2 pg (26-34); Mean Corpuscular Volume 86.9 fl (80-100); Mean Platelet Volume 8.4 fl (7.4-10.4); Monocytes Absolute Auto 0.6 K/mm3 (0.1-0.6); Monocytes Percent Auto 8.1 % (2.6-8.5); Neutrophils Percent Auto 76.1 % (45.5-73.1); Platelet Count Result 372 k/mm3 (150-375); Red Blood Count 3.97 M/mm3 (4.6-6.20); White Blood Count 7.9 K/mm3 (4.5-10.0)
[2022-09-19 06:19] LABS: Alanine Aminotransferase 82 U/L (6-50); Albumin Level 3.4 g/dL (3.5-5.1); Alkaline Phosphatase 165 U/L (38-126); Anion Gap 7 mmol/L (8-16); Aspartate Amino Transferase 40 U/L (17-59); Bilirubin,Total 0.5 mg/dL (0.2-1.3); Blood Urea Nitrogen 10 mg/dL (9-20); Calcium 8.8 mg/dL (8.4-10.2); Carbon Dioxide 26 mmol/L (22-30); Chloride 103 mmol/L (98-107); Estimated CRCL calculation 144 ml/min; Estimated Glomerular Filt Rate > 60; Glucose 93 mg/dL (65-110); Magnesium 2.3 mg/dL (1.6-2.3); Potassium 4.4 mmol/L (3.4-5.0); Sodium 136 mmol/L (137-145)
[2022-09-19] MEDS: PANTOPRAZOLE 40 MG TABLET PO (09:28)
[2022-09-19] MEDS: ENOXAPARIN 40 MG/0.4 ML SYRINGE SUB-Q (09:28)
[2022-09-19] MEDS: DOXYCYCLINE HYCLATE 100 MG TABLET PO (09:28)
[2022-09-19 09:30] VITALS: TEMP 37.2
[2022-09-19] MEDS: ACETAMINOPHEN 325 MG TABLET 650 MG PO (09:30)
[2022-09-19 10:30] VITALS: TEMP 37.2
[2022-09-19 11:02] LABS: Rapid Plasma Reagin Reactive (NonReactive)
[2022-09-19 14:00] VITALS: BP 130/80; PULSE 107; RESP 20; TEMP 37; O2SAT 100
[2022-09-19] MEDS: FLUCONAZOLE 400 MG/NACL 200 ML 400 MG/200 ML BAG 100 MG IVPB (14:09)
--- NOTE | 2022-09-19 17:52 | PM.DS ---
DS: Admitting Diagnosis Discharge Date 09/19/2022 Admitting Diagnosis Fever DS: Discharge Diagnosis Discharge Diagnosis (1) Sepsis: Code(s): A41.9 - Sepsis, unspecified organism Status: Acute (2) Pyuria: Code(s): R82.81 - Pyuria Status: Acute (3) Transaminitis: Code(s): R74.01 - Elevation of levels of liver transaminase levels Status: Acute (4) Alcohol use disorder: Code(s): F10.90 - Alcohol use, unspecified, uncomplicated Status: Acute (5) Snoring: Code(s): R06.83 - Snoring Status: Acute DS: Summary Hospital Course Hospital Course: #?sepsis: With fever mild leukocytosis. Initially suspected to have UTI. Blood cultures no growth to date.? Urine culture was negative.? ESR is 126.? CRP is elevated at at 18.? ECHO negative.? Treated with Rocephin. No neck rigidity LFTs are elevated seemed chronic Rickettsial illness possible Empirically started on doxycycline.? Rocephin stopped. Finish doxycycline course Rickettsia antibody came back negative no history of tick bite. Further evaluated with cT chest abdomen pelvis CT neck? With no acute findings. ? except for multi goiter.? tsh normal If continues to have fever discussed need for lumbar puncture to further evaluate. However patient refused. Patient also looks nontoxic with no neck rigidity TB test pending Lyme serology pending Malaria pending Started on empiric antifungal coverage with fluconazole Fever improved with this If continues to have fever need infectious disease workup and follow-up with Infectious Disease. Will continue doxycycline for 2 weeks course and fluconazole for 2 weeks course # transaminitis: Patient has some transaminitis possibly due to sepsis versus chronic alcohol use.? Continue to monitor ct with negative liver # alcohol use disorder: advised abstinance from alcohol # snoring: Patient would benefit from outpatient sleep study. ApneaLink for screening. apnea link with AHI of 5.6 7 4 SH[facility] sleep study as an outpatient basis # positive RPR: Specific test in process need to be followed up as an outpatient basis. Time Spent with Patient Time attestation: Total time spent providing and/or coordinating discharge services: 40 minutes Exam Narrative: GENERAL: The patient is well developed, not in acute distress HEENT: Nonicteric sclerae, PERRLA, EOMI. Oropharynx clear. Moist mucous membranes. Conjunctivae appear well perfused. CHEST: Chest wall is nontender. HEART: Regular rate and rhythm without murmur, rubs, or gallops LUNGS: Clear to auscultation bilaterally. no respiratory distress ABDOMEN: Soft, positive bowel sounds, non-tender, no organomegaly. SKIN: No rash, no excessive bruising, petechiae, or purpura. NEUROLOGIC: Cranial nerves II-XII intact, alert and oriented x 3, no gross motor deficits no neck rigidity EXTREMITIES: no edema, cyanosis or clubbing DS: Data Data Completed and Pending Labs on day of discharge: Labs from last 24 hours 09/19/22 09/19/22 09/17/22 14:46 05:49 10:29 WBC 7.9 RBC 3.97 L Hgb 11.2 L Hct 34.5 L MCV 86.9 MCH 28.2 MCHC 32.5 RDW 13.0 Plt Count 372 MPV 8.4 Immature Gran % (Auto) 1.4 H Neut % (Auto) 76.1 H Lymph % (Auto) 13.1 L [place] % (Auto) 8.1 Eos % (Auto) 1.0 Baso % (Auto) 0.3 Lymph # (Auto) 1.03 [place] # (Auto) 0.6 Eos # (Auto) 0.1 Baso # (Auto) 0.0 Abs Immat Gran (auto) 0.11 H Absolute Neuts (auto) 6.0 Absolute Nucleated RBC 0.0 Nucleated RBC % 0.0 Sodium 136 L Potassium 4.4 Chloride 103 Carbon Dioxide 26 Anion Gap 7 L BUN 10 Creatinine 0.70 Estim Creat Clear Calc 144 Estimated GFR > 60 Glucose 93 Calcium 8.8 Magnesium 2.3 Total Bilirubin 0.5 AST 40 ALT 82 H Alkaline Phosphatase 165 H Total Protein 7.0 Albumin 3.4 L RPR Reactive A T.pallidum Ab (FTA-ABS) Pending Pending Rickettsia
[2022-09-20 13:13] LABS: NIL 0.02 IU/mL; Quantiferon TB Plus, 1T NEGATIVE (NEGATIVE); TB1-NIL 0.04 IU/mL; TB2-NIL 0.03 IU/mL
[2022-09-21 06:00] LABS: Lyme Disease Ab (IgM), Blot Negative (Negative); Lyme Disease Ab(IgG), Blot Negative (Negative)
[2022-09-22 19:14] LABS: Treponema pallidum Ab FTA ABS Nonreactive (Nonreactive)
[2022-09-22 19:14] LABS: Treponema pallidum Ab FTA ABS Nonreactive (Nonreactive)
[2022-09-26 13:26] LABS: Angiotensin Converting Enzyme 8 U/L (9-67)
== END 2022-09-19 18:15 | disposition home or self-care (01) | DRG 720 ==
LOC: ANHED 16:50 → ANH3MED 21:05
PROVIDERS: Family Medicine; Hospitalist; Admitting Provider Internal Medicine; Emergency Provider General Practice; Visit Provider Internal Medicine
DX: A41.9 Sepsis, unspecified organism (principal); R82.81 Pyuria; E04.9 Nontoxic goiter, unspecified; E66.9 Obesity, unspecified; F10.90 Alcohol use, unspecified, uncomplicated; K21.9 Gastro-esophageal reflux disease without esophagitis; R74.01 Elevation of levels of liver transaminase levels; R06.83 Snoring; Z68.34 Body mass index [BMI] 34.0-34.9, adult; Z20.822 Contact with and (suspected) exposure to COVID-19; Z89.021 Acquired absence of right finger(s)
CPT/HCPCS: 36415; 70491; 71046; 71260; 74177; 76705; 80053; 80074; 81001; 82164; 82550; 82728; 83036; 83605; 83615; 83690; 83735; 84443; 85025; 85610; 85652; 85730; 86038; 86140; 86308; 86430; 86480; 86592; 86617; 86703; 86757; 86780; 87040; 87086; 87491; 87591; 87636; 93306; 96361; 96365; 96367; 96372; 99285; A9270; G0378; G0432; J0131; J0696; J1170; J1450; J1650; J1741; J7030; J7120; Q9967

== ENCOUNTER 2023-05-08 11:53 | Emergency (ER) | payer SELFPAY ==
--- NOTE | ~2023-05-08 | XR_ITS ---
XR chest 2V 05/08/2023 12:54 Indication: Right shoulder pain. Procedure: 2 view chest Comparison: 09/10/2022 Findings: Heart size normal. No focal air space disease, pulmonary edema, pleural effusion or suspect ed pneumothorax. There is a new nodular density overlying the right fifth rib anteriorly. Impression: 1: New nodular density right mid thorax. Follow-up CT chest recommended. 2: No acute cardiopulmonary disease. Reviewed, dictated and finalized at location L. CAL RESEARCH SCIENTIST Impression: 1: New nodular density right mid thorax. Follow-up CT chest recommended. 2: No acute cardiopulmonary disease.
--- NOTE | 2023-05-08 11:56 | ECG_ITS ---
Measurements Intervals [place] Rate: 90 P: 35 ND: 160 QRS: 36 QRSD: 90 T: 31 QT: 356 QTc: 437 Interpretive Statements SINUS RHYTHM NO PREVIOUS ECG AVAILABLE FOR COMPARISON Electronically Signed On 05-08-2023 16:06:25 PRODUCT MARKETING ENGINEER by Olga Churchill M.D.
[2023-05-08 12:06] VITALS: BP 169/108; PULSE 79; RESP 16; TEMP 36.4; O2SAT 100
== END 2023-05-08 16:46 | disposition left against medical advice (07) ==
PROVIDERS: Emergency Provider Emergency Medicine
DX: M25.511 Pain in right shoulder (principal)
CPT/HCPCS: 71046; 93005; 99199

== ENCOUNTER 2023-11-27 20:17 | Emergency (ER) | payer SELFPAY ==
[2023-11-27 20:39] VITALS: BP 152/91; PULSE 81; RESP 18; TEMP 36.4; O2SAT 99
--- NOTE | 2023-11-27 23:45 | PC.NURSE ---
Pt's name was called twice to be taken back to a room and no one showed.
== END 2023-11-28 00:46 | disposition left against medical advice (07) ==
LOC: ANHED 23:49
DX: R42 Dizziness and giddiness (principal)
CPT/HCPCS: 99199

== ENCOUNTER 2024-01-19 21:27 | Emergency (ER) | payer BC, SELFPAY ==
[2024-01-19 21:32] VITALS: BP 143/85; PULSE 76; RESP 17; TEMP 36.8; O2SAT 100
--- NOTE | 2024-01-19 21:32 | ECG_ITS ---
Test Date: 2024-01-19 21:36:41 Measurements Intervals [place] Rate: 73 P: 24 IA: 174 QRS: 30 QRSD: 82 T: 17 QT: 366 QTc: 404 Interpretive Statements SINUS RHYTHM DELAYED PRECORDIAL R/S TRANSITION- BORDERLINE ECG No previous ECG available for comparison Electronically Signed On 01-20-2024 08:36:19 CDT by Ben George D.O.
--- NOTE | 2024-01-19 23:26 | PC.NURSE ---
Patient ambulates to the desk to state I feel okay and I am going to leave. If I feel worse I'll come back. Patient was on the phone and left the ED before risks of leaving before being seen by a provider and benefits of staying. Patient ambulated out of the ED with a steady gait and got into a vehicle. Patient had belongings with him. Patient marked as left without being seen, triaged.
== END 2024-01-19 23:47 | disposition left against medical advice (07) ==
LOC: ANHED 23:34
PROVIDERS: Emergency Provider Emergency Medicine
DX: M25.511 Pain in right shoulder (principal)
CPT/HCPCS: 93005; 99199

== ENCOUNTER 2024-03-05 20:17 | Emergency (ER) | payer BC, SELFPAY ==
--- NOTE | ~2024-03-05 | XR_ITS ---
EXAMINATION: XR chest 1V portable DATE: 03/05/2024 20:48 INDICATION: Central chest pain TECHNIQUE: frontal view of the chest was obtained. COMPARISON: Chest radiograph dated 05/08/[address] dated 09/14/2022 FINDINGS: Small calcified nodule near the right costophrenic angle. Chronic small sclerotic bone islands at the anterior right fifth and sixth ribs. There are multiple additional small round densities projecting over the left and right chest which are new since the prior study likely representing material inlayer al to the patient. No focal airspace opacities, pulmonary edema, pleural effusion or pneumothorax. Ca rdiomegaly. IMPRESSION: 1. Cardiomegaly. No acute cardiopulmonary disease. Reviewed, dictated and finalized at location A.
--- NOTE | 2024-03-05 20:18 | ECG_ITS ---
Test Date: 2024-03-05 20:23:50 Measurements Intervals [place] Rate: 73 P: 26 ND: 160 QRS: 30 QRSD: 85 T: 30 QT: 365 QTc: 404 Interpretive Statements SINUS RHYTHM NONSPECIFIC T-WAVE ABNORMALITY Compared to ECG 01/19/2024 21:36:41 NO SIGNIFICANT CHANGES Electronically Signed On 03-06-2024 09:39:44 CDT by Olga Churchill M.D.
[2024-03-05 20:25] VITALS: BP 133/80; PULSE 75; RESP 17; TEMP 36.5; O2SAT 100
[2024-03-05 20:33] LABS: Basophils Percent Auto 0.4 % (0.2-1.2); Eosinophils Absolute Auto 0.1 K/mm3 (0-0.3); Eosinophils Percent Auto 1.4 % (0-4.4); Hematocrit 43.8 % (42.0-52.0); Hemoglobin 14.9 g/dL (14.0-18.0); Immature Granulocyte Absolute 0.01 K/mm3 (0.00-0.031); Immature Granulocyte Percent A 0.2 % (0-0.5); Lymphocytes Absolute Auto 2.51 K/mm3 (0.9-3.2); Lymphocytes Percent Auto 51.1 % (18.3-44.2); Mean Corpuscular Hemoglobin 29.3 pg (26-34); Mean Corpuscular Volume 86.1 fl (80-100); Mean Platelet Volume 9.3 fl (7.4-10.4); Monocytes Absolute Auto 0.4 K/mm3 (0.1-0.6); Monocytes Percent Auto 8.8 % (2.6-8.5); Neutrophils Absolute Auto 1.9 K/mm3 (1.3-6.7); Neutrophils Percent Auto 38.1 % (45.5-73.1); Platelet Count Result 203 k/mm3 (150-375); Red Blood Count 5.09 M/mm3 (4.6-6.20); Red Cell Distribution Width 12.8 % (11.5-14.5); White Blood Count 4.9 K/mm3 (4.5-10.0)
[2024-03-05 20:41] VITALS: PULSE 77; O2SAT 98
[2024-03-05 20:45] LABS: Alanine Aminotransferase 59 U/L (6-50); Albumin Level 4.5 g/dL (3.5-5.1); Alkaline Phosphatase 120 U/L (38-126); Anion Gap 7 mmol/L (4-12); Aspartate Amino Transferase 30 U/L (17-59); Bilirubin,Total 0.3 mg/dL (0.2-1.3); Blood Urea Nitrogen 15 mg/dL (9-20); Calcium 9.2 mg/dL (8.4-10.2); Carbon Dioxide 25 mmol/L (22-30); Chloride 105 mmol/L (98-107); Estimated CRCL calculation 116 ml/min; Estimated Glomerular Filt Rate > 60; Glucose 90 mg/dL (65-110); Lipase 69 U/L (23-300); Potassium 3.8 mmol/L (3.4-5.0); Sodium 137 mmol/L (137-145)
[2024-03-05 20:54] LABS: Partial Thromboplastin Time 31.9 Seconds (22.3-36.8); Prothrombin Time 13.7 Seconds (11.1-14.7)
[2024-03-05 20:56] LABS: Troponin I < 0.012 ng/mL (0.000-0.034)
--- NOTE | 2024-03-05 21:02 | ED_ITS ---
HPI - Chest Pain General Chief Complaint: Chest Pain Stated Complaint: Chest pain Time Seen by Provider: 03/05/24 20:34 History of Present Illness HPI narrative: Pt says he felt tightness in his chest and SOB and noticed his wrist were cramping up and his legs cramped. Pt says it started about 1999 and lasted about 40 minutes and resolved during ambulance ride. Pt says he thins it was a panic attack. Pt has no CP or SOB now. Pt has a history of these and it feels similar. Related Data Home Medications Medication Instructions Recorded Confirmed Excedrin Extra Strength 250 mg PO Q4-6H 09/10/22 09/10/22 Allergies Allergy/AdvReac Type Severity Reaction Status Date / Time No Known Allergies Allergy Verified 03/05/24 20:29 Review of Systems Review of Systems: All systems reviewed & are unremarkable except as noted in HPI and below PMFSH Past Medical History Medical History (Updated 03/05/24 @ 21:13 by Noah Tinsley III, DO) Obese Surgical History Surgical History (Updated 09/11/22 @ 08:32 by Ronda Go DO) Amputation of finger of right hand The patient had traumatic injury when he closed his hand in a rail car door and had subsequent debridement and trimming of the stump of the pinky of the right hand and reconstruction of the ring finger Family History Family History (Updated 09/11/22 @ 08:34 by Ronda Go DO) Mother Diabetes mellitus End-stage renal disease on hemodialysis Heart disease Hypertension Cerebrovascular accident Father Diabetes mellitus End-stage renal disease on hemodialysis Hypertension Heart disease Sibling Suicide Social History Social History (Updated 09/11/22 @ 08:43 by Ronda Go DO) Social History: Code status: Full code Surrogate decision maker: Fariba Smoking status: Never smoker Alcohol intake: current Drinks per week: 20 Alcohol use details: The patient drinks 2 beers and 1 mixed drink every day and binge drinks on the weekends. Substance use: former Substance use type: marijuana Lack of Transportation: No Lack of Food: Never True Current Housing: I Have Housing Concerned About Future Housing: No Difficulty Paying Gas/Electric Bills: No Difficulty Paying for Meds: No Currently Unemployed: No Education: High School Diploma/GED Difficulty w/ Childcare or Family Care: No Additional living arrangements comments: He lives with his fariba. They have been together since 2018. He is an 8-year-old son and a 23-year-old son. 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 Spiritual care concerns: No Exam Const: General: healthy appearing and no acute distress Nutritional Appearance: well nourished Orientation/consciousness: patient oriented x3 Limitations: no limitations Chest: Chest palpation & inspection: normal inspection of the chest Resp: Effort & Inspection: normal respiratory effort Auscultation: clear to auscultation bilaterally Cardio: Rate: regular rate Rhythm: regular rhythm GI: GI Palp: Yes Soft to palpation and No Tenderness to palpation present (GI) Auscultation: normal bowel sounds Skin: General skin exam: normal color Rashes: no rashes Neuro: General: patient oriented x3, moves all extremities, no meningeal signs, no focal motor deficits and CN's II-XI intact bilaterally Cranial nerves: Yes Nystagmus not present Speech: normal speech Gait exam (Neuro): Normal gait present Extrem: General: normal to inspection and no clubbing, cyanosis or edema Psych: Mental Status: mental status grossly normal Affect: Anxious affect present Attitude: cooperative Course Vital Signs Vital signs: Vital Signs Temperature 97.7 F 03/05/24 20:25 Pulse Rate 75 03/05/24 20:25 Respiratory Rate 17 03/05/24 20:25 Blood Pressure 133/80 03/05/24 20:25 Pulse Oximetry 100 03/05/24 20:25 Oxygen Delivery Room Air 03/05/24 20:25 Temperature 97.7 F 03/05/24 20:25 Pulse Rate 77 03/05/24 20:41 Respiratory Rate 17 03/05/24 20:25 Blood Pressure 133/80 03/05/24 20:25 Pulse Oximetry 98 03/05/24 20:41 Oxygen Delivery Room Air 03/05/24 20:41 MDM - Chest Pain MDM Narrative Medical decision making narrative: Pt had what seems like panic attack which has resolved. Pt had some CP/SOB with event so will check ekg and cardiac labs to be safe. ekg and cxr and labs including troponin all normal. likely panic attack now resolved Lab Data 03/05/24 20:24 03/05/24 20:24 Labs: Lab Results 03/05/24 Range/Units 20:24 WBC 4.9 (4.5-10.0) K/mm3 RBC 5.09 (4.6-6.20) M/mm3 Hgb 14.9 D (14.0-18.0) g/dL Hct 43.8 (42.0-52.0) % MCV 86.1 (80-100) fl MCH 29.3 (26-34) pg MCHC 34.0 (32-36) g/dl RDW 12.8 (11.5-14.5) % Plt Count 203 (150-375) k/mm3 MPV 9.3 (7.4-10.4) fl Immature Gran % (Auto) 0.2 (0-0.5) % Neut % (Auto) 38.1 L (45.5-73.1) % Lymph % (Auto) 51.1 H (18.3-44.2) % [place] % (Auto) 8.8 H (2.6-8.5) % Eos % (Auto) 1.4 (0-4.4) % Baso % (Auto) 0.4 (0.2-1.2) % Lymph # (Auto) 2.51 (0.9-3.2) K/mm3 [place] # (Auto) 0.4 (0.1-0.6) K/mm3 Eos # (Auto) 0.1 (0-0.3) K/mm3 Baso # (Auto) 0.0 (0.0-0.1) K/mm3 Abs Immat Gran (auto) 0.01 (0.00-0.031) K/mm3 Absolute Neuts (auto) 1.9 (1.3-6.7) K/mm3 Absolute Nucleated RBC 0.000 (0.0-0.012) K/mm3 Nucleated RBC % 0.0 (0.0-0.2) % PT 13.7 (11.1-14.7) Seconds INR 1.0 APTT 31.9 (22.3-36.8) Seconds Sodium 137 (137-145) mmol/L Potassium 3.8 (3.4-5.0) mmol/L Chloride 105 (98-107) mmol/L Carbon Dioxide 25 (22-30) mmol/L Anion Gap 7 (4-12) mmol/L BUN 15 D (9-20) mg/dL Creatinine 0.90 (0.7-1.3) mg/dL Estim Creat Clear Calc 116 ml/min Estimated GFR > 60 (59 - ) Glucose 90 (65-110) mg/dL Calcium 9.2 (8.4-10.2) mg/dL Total Bilirubin 0.3 (0.2-1.3) mg/dL AST 30 (17-59) U/L ALT 59 H (6-50) U/L Alkaline Phosphatase 120 (38-126) U/L Troponin I < 0.012 (0.000-0.034) ng/mL Total Protein 8.0 (6.3-8.2) g/dL Albumin 4.5 (3.5-5.1) g/dL Lipase 69 (23-300) U/L ECG Data EKG #1: Interpretation: nst rate [address] or t wave changes Discharge Plan Discharge Clinical Impression: Panic attack Patient Disposition: Home, Self-Care Condition: Improved Instructions: Antibiotic Form, Panic Attack (ED) Prescriptions: New lorazepam [Ativan] 1 mg tablet 1 mg PO TID PRN (Reason: anxiety) Qty: 10 0RF No Action Mucinex DM 30-600 mg tablet extended release 12 hr 1 tablet PO Q12H Qty: 14 0RF Excedrin Extra Strength 250 mg PO Q4-6H acetaminophen [Mapap (acetaminophen)] 325 mg Tablet 650 mg PO Q4H PRN (Reason: Mild Pain (1-3) Or Fever) Qty: 30 0RF doxycycline hyclate 100 mg Tablet 100 mg PO Q12HR Qty: 18 0RF fluconazole 200 mg tablet 200 mg PO DAILY Qty: 12 0RF ibuprofen 400 mg Tablet 400 mg PO Q6H PRN (Reason: Pain Rated 1-3) Qty: 30 0RF Follow-up/Referrals: UNKNOWN,DOCTOR [Primary Care Provider] - Stand Alone Forms: Work/School Release IP Quality HEART score for chest pain patients History: slightly suspicious ECG: normal Age: < or = to 45 years Risk factors: no risk factors known Troponin: < or = to 1x normal limit Heart score: 0
== END 2024-03-05 21:22 | disposition home or self-care (01) ==
PROVIDERS: Emergency Medicine; Emergency Provider Emergency Medicine
DX: F41.0 Panic disorder [episodic paroxysmal anxiety] (principal); E66.9 Obesity, unspecified; Z68.35 Body mass index [BMI] 35.0-35.9, adult
CPT/HCPCS: 36415; 71045; 80053; 83690; 84484; 85025; 85610; 85730; 93005; 99284

== ENCOUNTER 2024-03-22 02:55 | Emergency (ER) | payer BC, SELFPAY ==
[2024-03-22 02:55] VITALS: BP 146/87; PULSE 72; RESP 13; TEMP 36.7; O2SAT 97
--- NOTE | 2024-03-22 04:20 | ED.ANXIETY ---
HPI - Anxiety General Chief Complaint: Anxiety Stated Complaint: anxiety Time Seen by Provider: 03/22/24 03:15 Source: patient Mode of arrival: EMS Limitations: no limitations History of Present Illness HPI narrative: This is a 43-year-old male with history of anxiety, brought in by EMS from home for anxiety. The patient states he feels though he began having a panic attack earlier today. He was able to relax himself by deep breathing however it it returned. He denies any known obvious trigger. He states his symptoms include lightheadedness and some chest tightness which is typical for him. He denies any new worsening chest pain, vomiting, abdominal pain, suicidal ideations, homicidal ideations or hallucinations. He states since being in the emergency department, he has calmed significantly though still feels slightly anxious. He states he has been diagnosed with a thyroid tumor and is scheduled to undergo surgical resection in the coming week. He has no other complaints at this time. Related Data Home Medications Medication Instructions Recorded Confirmed Excedrin Extra Strength 250 mg PO Q4-6H 09/10/22 09/10/22 Allergies Allergy/AdvReac Type Severity Reaction Status Date / Time No Known Allergies Allergy Verified 03/05/24 20:29 Review of Systems Review of Systems: All systems reviewed & are unremarkable except as noted in HPI and below PMFSH Past Medical History Medical History Obese Surgical History Surgical History Amputation of finger of right hand The patient had traumatic injury when he closed his hand in a rail car door and had subsequent debridement and trimming of the stump of the pinky of the right hand and reconstruction of the ring finger Family History Family History Mother Diabetes mellitus End-stage renal disease on hemodialysis Heart disease Hypertension Cerebrovascular accident Father Diabetes mellitus End-stage renal disease on hemodialysis Hypertension Heart disease Sibling Suicide Social History Social History Social History: Code status: Full code Surrogate decision maker: Valentín Smoking status: Never smoker Alcohol intake: current Drinks per week: 20 Alcohol use details: The patient drinks 2 beers and 1 mixed drink every day and binge drinks on the weekends. Substance use: former Substance use type: marijuana Lack of Transportation: No Lack of Food: Never True Current Housing: I Have Housing Concerned About Future Housing: No Difficulty Paying Gas/Electric Bills: No Difficulty Paying for Meds: No Currently Unemployed: No Education: High School Diploma/GED Difficulty w/ Childcare or Family Care: No Additional living arrangements comments: He lives with his reesee. They have been together since 2018. He is an 8-year-old son and a 23-year-old son. 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 HEAD: Normocephalic, atraumatic. EYES: PERRLA and EOMI. CHEST: Clear to auscultation. No respiratory distress. No wheezes rales or rhonchi HEART: Regular rate and rhythm. No murmur heard. Normal peripheral pulses. ABDOMEN: Soft, nontender, nondistended, normal active bowel sounds. EXTREMITIES: Normal range of motion. No edema. SKIN: Warm, dry, no rash. NEURO: Alert and oriented x3. No focal deficit. Moving all 4 limbs spontaneously PSYCH: Normal mood and affect. Course Course Emergency Course: 04:18 - On my evaluation, the patient's blood pressures improved to 140 6/87. He states he feels significantly improved without direct intervention. He requests an anxiolytic. Will discharge with recommendation for primary care follow-up. I discussed the findings and recommendations with The patient. Discussed return and emergency precautions including signs/symptoms of ACS and respiratory distress. The patient voiced understanding and agreement with the plan. All questions answered to his satisfaction. Vital Signs Vital signs: Vital Signs Temperature 98.1 F 03/22/24 02:55 Pulse Rate 72 03/22/24 02:55 Respiratory Rate 13 03/22/24 02:55 Blood Pressure 146/87 H 03/22/24 02:55 Pulse Oximetry 97 03/22/24 02:55 Oxygen Delivery Room Air 03/22/24 02:55 Temperature 98.1 F 03/22/24 02:55 Pulse Rate 85 03/22/24 04:33 Respiratory Rate 18 03/22/24 04:33 Blood Pressure 133/84 03/22/24 04:33 Pulse Oximetry 97 03/22/24 04:33 Oxygen Delivery Room Air 03/22/24 02:55 MDM - Anxiety MDM Narrative Medical decision making narrative: Plan: Anxious lytic, primary care follow-up Differential Diagnosis Differential diagnosis: Likely acute anxiety and other ( hypertension, hyperthyroidism, other) Discharge Plan Discharge Clinical Impression: Panic attack Patient Disposition: Home, Self-Care Condition: Stable Instructions: Antibiotic Form, Anxiety (ED) Additional Instructions: You were seen in the emergency department. Your exam is reassuring. Your blood pressure has improved. I recommend following up with your primary care doctor. If you develop Chest pain, shortness of breath, loss of consciousness, or if you have other emergent concerns for life, limb, or eyesight, return to the emergency department. Patient Language: Moroccan Prescriptions: New lorazepam [Ativan] 0.5 mg tablet 0.5 mg PO DAILY PRN (Reason: anxiety) Qty: 3 0RF No Action Mucinex DM 30-600 mg tablet extended release 12 hr 1 tablet PO Q12H Qty: 14 0RF Excedrin Extra Strength 250 mg PO Q4-6H acetaminophen [Mapap (acetaminophen)] 325 mg Tablet 650 mg PO Q4H PRN (Reason: Mild Pain (1-3) Or Fever) Qty: 30 0RF doxycycline hyclate 100 mg Tablet 100 mg PO Q12HR Qty: 18 0RF fluconazole 200 mg tablet 200 mg PO DAILY Qty: 12 0RF ibuprofen 400 mg Tablet 400 mg PO Q6H PRN (Reason: Pain Rated 1-3) Qty: 30 0RF lorazepam [Ativan] 1 mg tablet 1 mg PO TID PRN (Reason: anxiety) Qty: 10 0RF Follow-up/Referrals: UNKNOWN,DOCTOR [Primary Care Provider] - 2 Weeks Time of Disposition: 04:21
[2024-03-22] MEDS: LORazepam (*CRX) 0.5 MG TABLET PO (04:30)
[2024-03-22 04:33] VITALS: BP 133/84; PULSE 85; RESP 18; O2SAT 97
== END 2024-03-22 04:34 | disposition home or self-care (01) ==
PROVIDERS: Emergency Provider Preventive Medicine Aerospace Medicine
DX: F41.0 Panic disorder [episodic paroxysmal anxiety] (principal); E66.9 Obesity, unspecified; Z68.35 Body mass index [BMI] 35.0-35.9, adult; Z89.021 Acquired absence of right finger(s)
CPT/HCPCS: 99283; A9270

== ENCOUNTER 2025-03-13 12:12 | Emergency (ER) | payer BC, SELFPAY ==
[2025-03-13] VITALS (9 sets, daily range): BP systolic 130–153; BP diastolic 77–96; PULSE 76–131; RESP 15–18; TEMP 37.7–39.4; O2SAT 97–100
--- OUTSIDE RECORDS SUMMARY | 2025-03-13 12:13 | XMS_ITS | Clinical Summary ---
Author Organization [facility] Address [address] [place] [address] Care Team Providers Care Finishing Supervisor Name Role Phone Romi Owens MD Primary Care Provider [phone] Allergies No known active allergies Medications amLODIPine (NORVASC) 10 mg tablet Take 1 tablet (10 mg total) by mouth daily 30 tablet 10/18/2023 Active Social History Tobacco Use Types Packs/Day Years Used Date Smoking Tobacco: Never Assessed Personal Safety Answer Date Recorded Have you ever been in or are you currently in a harmful physical or emotional relationship or is someone making you feel afraid or unsafe? Denies 12/17/2023 Sex and Gender Information Value Date Recorded Sex Assigned at Not on file Legal Sex Male 11:19 AM CDT Gender Identity Not on file Sexual Orientation Not on file Obstetrics History Last Filed Vital Signs Vital Sign Reading Time Taken Comments Blood Pressure 146/84 12/17/2023 3:35 PM CDT Pulse 69 12/17/2023 3:35 PM CDT Temperature 36.9 C (98.5 F) 12/17/2023 9:40 AM CDT Respiratory Rate 17 12/17/2023 3:35 PM CDT Oxygen Saturation 98% 12/17/2023 3:35 PM CDT Inhaled Oxygen Concentration - - Weight 113.4 kg (250 lb) 12/17/2023 9:40 AM CDT Height 177.8 cm (5' 10) 12/17/2023 9:40 AM CDT Body Mass Index 35.87 12/17/2023 9:40 AM CDT Plan of Treatment Health Maintenance Due Date Last Done Comments Colon Cancer Screening-Colonoscopy 1979 Depression Screening 1979 Hepatitis C Screening 1979 Prostate Cancer Screening-PSA 1979 Varicella Vaccines (1 of 2 - 13+ 2-dose series) 1992 Hepatitis B Screening 1997 Regular Well Visit/Exam 18-64 1997 HPV Vaccines (1 - 3-dose SCD M series) 2006 DTaP/Tdap/Td Vaccine (2 - Td or Tdap) 06/24/2024 06/24/2014 Covid-19 Vaccine (4 - 2024-2 6 season) 2025 03/07/2022, 06/30/2021, 06/09/2021 Influenza Vaccine (#1) 2025 Pneumococcal vaccine <65 Aged Out No longer eligible based on patient's age to complete this topic Insurance [facility] cVidya EXCHANGE Care Teams Finishing Supervisor Relationship Specialty Start Date End Date Romi Owens MD [facility] [address] [place] [address] [address] PCP - General 08/11/16
--- NOTE | 2025-03-13 13:47 | PC.NURSE ---
patient reports that he is going to take his personal tylenol made aware.
--- NOTE | 2025-03-13 14:27 | ED_ITS ---
HPI - General Adult General Chief complaint: Recheck/Abnormal Lab/Rx Stated complaint: Blood Pressure and HR Elevated Time Seen by Provider: 03/13/25 14:07 Source: patient and family Mode of arrival: ambulatory Limitations: no limitations History of Present Illness HPI narrative: Mr. Wallace is an adult male with a past medical history of thyroidectomy, hypertension, and GERD who presents to the emergency department with complaints of fever, body aches, and palpitations. The patient reports the onset of intermittent palpitations this morning around 7:00 AM. He currently endorses generalized body aches and subjective fever. He was noted to be objectively febrile and tachycardic on evaluation. The patient reports taking two extra-strength Tylenol approximately 20 minutes prior to arrival in the room. He also took a baby aspirin today due to patient's concern about his heart rate. His home medications include Levothyroxine, Pantoprazole, Amlodipine, and Zyrtec. Patient denies cough or difficulty breathing. Related Data Home Medications ?Medication ?Instructions ?Recorded ?Confirmed ?Last Taken ?Type Excedrin Extra Strength 250 mg PO Q4-6H 09/10/2209/09/22 07:00 History Allergies Allergy/AdvReac Type Severity Reaction Status Date / Time No Known Allergies Allergy Verified 03/13/25 12:22 Review of Systems 2 Review of Systems: * CONSTITUTIONAL: Positive for subjective fever and generalized body aches. Denies chills. * CARDIOVASCULAR: Positive for intermittent palpitations and tachycardia. Denies chest pain or lower extremity edema. * RESPIRATORY: Denies shortness of breath or cough. * GASTROINTESTINAL: Denies nausea, vomiting, diarrhea, or abdominal pain. * NEUROLOGICAL: Denies headache, dizziness, or focal deficits. * All other systems reviewed and are negative. [facility] Past Medical History Medical History Obese Surgical History Surgical History Amputation of finger of right hand The patient had traumatic injury when he closed his hand in a rail car door and had subsequent debridement and trimming of the stump of the pinky of the right hand and reconstruction of the ring finger Family History Family History Mother Diabetes mellitus End-stage renal disease on hemodialysis Heart disease Hypertension Cerebrovascular accident Father Diabetes mellitus End-stage renal disease on hemodialysis Hypertension Heart disease Sibling Suicide Social History Social History Social History: Code status: Full code Surrogate decision maker: Valentín Smoking status: Never smoker Alcohol intake: current Drinks per week: 20 Alcohol use details: The patient drinks 2 beers and 1 mixed drink every day and binge drinks on the weekends. Substance use: former Substance use type: marijuana Lack of Transportation: No Lack of Food: Never True Current Housing: I Have Housing Concerned About Future Housing: No Difficulty Paying Gas/Electric Bills: No Difficulty Paying for Meds: No Currently Unemployed: No Education: High School Diploma/GED Difficulty w/ Childcare or Family Care: No Additional living arrangements comments: He lives with his valentín. They have been together since 2018. He is an 8-year-old son and a 23-year-old son. 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 HEAD: Normocephalic, atraumatic. ENT:? Mucous membranes moist. CHEST: Clear to auscultation.? No respiratory distress. HEART: Tachycardic rate and regular rhythm. ? Normal peripheral pulses. ABDOMEN: Soft, nontender, nondistended. EXTREMITIES: Normal range of motion. No peripheral edema. SKIN: Warm dry normal color NEURO: Alert and oriented x3. PSYCH: Normal mood and affect Course Vital Signs Vital signs: Vital Signs Temperature 39.4 C H 03/13/25 12:15 Pulse Rate 131 H 03/13/25 12:15 Respiratory Rate 16 03/13/25 12:15 Blood Pressure 153/96 H 03/13/25 12:15 Pulse Oximetry 100 03/13/25 12:15 Oxygen Delivery Room Air 03/13/25 12:15 Temperature 37.7 C H 03/13/25 16:30 Pulse Rate 76 03/13/25 16:30 Respiratory Rate 18 03/13/25 16:30 Blood Pressure 145/83 H 03/13/25 16:30 Pulse Oximetry 100 03/13/25 16:30 Oxygen Delivery Room Air 03/13/25 12:15 Medical Decision Making MDM Narrative Medical decision making narrative: This is a 44-year-old male patient with a history hypertension and status post thyroidectomy who presents tachycardia and fever. Patient denied cough sore throat shortness of breath abdominal pain dysuria or any skin wounds. While patient was in the waiting he took 1000 mg oral Tylenol from his own supply of medication. He stated that he felt well yesterday and had sudden onset of symptoms upon awakening today. He denies any nausea vomiting constipation or diarrhea. IV inserted and labs drawn. Laboratory assessment unremarkable normal white blood cell increased neutrophil distribution and decreased lymphocyte. CMP unremarkable. Urinalysis with trace ketones and minimal amount of blood but no signs of urinary tract infection. Nasal viral swab was positive for COVID. Patient received a L of IV fluids. Vital signs improved. Patient feeling better. Prescription written for Paxlovid since symptom onset was today and he has some comorbidities. Differential Diagnosis Differential Diagnosis: Viral syndrome, UTI, Pneumonia, Otitis media Neurogenic fever less likely Vital Signs Vital Signs: Vital Signs Temperature 39.4 C H 03/13/25 12:15 Pulse Rate 131 H 03/13/25 12:15 Respiratory Rate 16 03/13/25 12:15 Blood Pressure 153/96 H 03/13/25 12:15 Pulse Oximetry 100 03/13/25 12:15 Oxygen Delivery Room Air 03/13/25 12:15 Temperature 37.7 C H 03/13/25 16:30 Pulse Rate 76 03/13/25 16:30 Respiratory Rate 18 03/13/25 16:30 Blood Pressure 145/83 H 03/13/25 16:30 Pulse Oximetry 100 03/13/25 16:30 Oxygen Delivery Room Air 03/13/25 12:15 Lab Data 03/13/25 14:45 03/13/25 14:46 Labs: Lab Results 03/13/25 03/13/25 03/13/25 Range/Units 14:45 14:46 14:57 WBC 6.2 (4.5-10.0) K/mm3 RBC 5.35 (4.6-6.20) M/mm3 Hgb 15.5 (14.0-18.0) g/dL Hct 45.4 (42.0-52.0) % MCV 84.9 (80-100) fl MCH 29.0 (26-34) pg MCHC 34.1 (32-36) g/dl RDW 13.5 (11.5-14.5) % Plt Count 195 (150-375) k/mm3 MPV 9.7 (7.4-10.4) fl Immature Gran % (Auto) 0.2 (0-0.5) % Neut % (Auto) 82.8 H (45.5-73.1) % Lymph % (Auto) 8.0 L (18.3-44.2) % [place] % (Auto) 8.5 (2.6-8.5) % Eos % (Auto) 0.3 (0-4.4) % Baso % (Auto) 0.2 (0.2-1.2) % Lymph # (Auto) 0.49 L (0.9-3.2) K/mm3 [place] # (Auto) 0.5 (0.1-0.6) K/mm3 Eos # (Auto) 0.0 (0-0.3) K/mm3 Baso # (Auto) 0.0 (0.0-0.1) K/mm3 Abs Immat Gran (auto) 0.01 (0.00-0.031) K/mm3 Absolute Neuts (auto) 5.1 (1.3-6.7) K/mm3 Absolute Nucleated RBC 0.000 (0.0-0.012) K/mm3 Nucleated RBC % 0.0 (0.0-0.2) % Sodium 138 (137-145) mmol/L Potassium 4.0 (3.4-5.0) mmol/L Chloride 105 (98-107) mmol/L Carbon Dioxide 23 (22-30) mmol/L Anion Gap 10 (4-12) mmol/L BUN 18 (9-20) mg/dL Creatinine 1.00 (0.7-1.3) mg/dL Estim Creat Clear Calc 104 ml/min Estimated GFR > 60 (59 - ) Glucose 101 (65-110) mg/dL Lactic Acid 0.9 (0.7-2.0) mmol/L Calcium 9.4 (8.4-10.2) mg/dL Total Bilirubin 0.6 (0.2-1.3) mg/dL AST 35 (17-59) U/L ALT 42 (6-50) U/L Alkaline Phosphatase 130 H (38-126) U/L Total Creatine Kinase 119 (55-170) U/L Total Protein 8.2 (6.3-8.2) g/dL Albumin 4.9 (3.5-5.1) g/dL Lipase 49 (23-300) U/L TSH (Reflex) 2.670 (0.465-4.68) uIU/mL Urine Color Yellow (Yellow) Urine Appearance Clear (Clear) Urine pH 5.5 (5.0-9.0) Ur Specific Harvey 1.032 (1.001-1.035) Urine Protein Trace (Negative) mg/dL Urine Glucose (UA) Negative (Negative) mg/dL Urine Ketones Trace H (Negative) mg/dL Ur Blood (Man) 1+ H (Negative) Urine Nitrate Negative (Negative) Urine Bilirubin Negative (Negative) Urine Urobilinogen 1.0 (<2.0) mg/dL Leukocyte Esterase Rfl Negative (Negative) CHANDU/UL Urine RBC 6-10 H (0-2) /hpf Urine WBC 0-5 (0-3) /hpf Ur Squamous Epith Cells None seen (Few) /hpf Urine Bacteria None seen /hpf Urine Casts 0-2 Influenza A (RT-PCR) Negative (Negative) Influenza B (RT-PCR) Negative (Negative) RSV (RT-PCR) Negative (Negative) SARS-CoV-2 RNA (RT-PCR) Positive A (Negative) Discharge Plan Discharge Clinical Impression: COVID-19 Patient Disposition: Home Condition: Stable Instructions: Antibiotic Form, How To Wash Your Hands (ED), COVID-19 and Chronic Health Conditions (ED), COVID-19: Slow the Coronavirus Spread (ED), Face Coverings (Masks) and COVID-19 (ED), How to Recover from COVID-19 at Home (ED) Additional Instructions: May take Tylenol or ibuprofen as directed on the bottle for fever or pain/headache/muscle aches. Make your follow up appointment for your thyroid assessment as you discussed you did not follow up. If you develop severe breathing problems, suspected blood clots or new/worsening condition(s) then return to ER. Patient Language: Romansh Prescriptions: New Paxlovid 300 mg (150 mg x 2)-100 mg tablets,dose pack See Rx Instructions .ROUTE .COMPLEX Qty: 30 0RF Rx Instructions: take TWO 150 mg tablets of nirmatrelvir with ONE 100 mg tablet of ritonavir twice daily for 5 days No Action Mucinex DM 30-600 mg tablet extended release 12 hr 1 tablet PO Q12H Qty: 14 0RF lorazepam [Ativan] 0.5 mg tablet 0.5 mg PO DAILY PRN (Reason: anxiety) Qty: 3 0RF Excedrin Extra Strength 250 mg PO Q4-6H acetaminophen [Mapap (acetaminophen)] 325 mg Tablet 650 mg PO Q4H PRN (Reason: Mild Pain (1-3) Or Fever) Qty: 30 0RF doxycycline hyclate 100 mg Tablet 100 mg PO Q12HR Qty: 18 0RF fluconazole 200 mg tablet 200 mg PO DAILY Qty: 12 0RF ibuprofen 400 mg Tablet 400 mg PO Q6H PRN (Reason: Pain Rated 1-3) Qty: 30 0RF lorazepam [Ativan] 1 mg tablet 1 mg PO TID PRN (Reason: anxiety) Qty: 10 0RF Follow-up/Referrals: Juan M Ayala MD [Physician, Family Practice] Referral Note: To establish primary care if you do not have one UNKNOWN,DOCTOR [Primary Care Provider] Stand Alone Forms: Work/School Release IP Time of Disposition: 16:10
[2025-03-13] MEDS: SODIUM CHLORIDE 0.9% IV 1,000 ML 999 ML IV CONT (14:56)
[2025-03-13 14:59] LABS: Hematocrit 45.4 % (42.0-52.0); Hemoglobin 15.5 g/dL (14.0-18.0); Immature Granulocyte Percent A 0.2 % (0-0.5); Lymphocytes Absolute Auto 0.49 K/mm3 (0.9-3.2); Mean Corpuscular HGB Conc 34.1 g/dl (32-36); Mean Corpuscular Hemoglobin 29.0 pg (26-34); Mean Corpuscular Volume 84.9 fl (80-100); Nucleated Red Blood Cells Absolute Auto 0.000 K/mm3 (0.0-0.012); Nucleated Red Blood Cells Perc 0.0 % (0.0-0.2); Platelet Count Result 195 k/mm3 (150-375); Red Blood Count 5.35 M/mm3 (4.6-6.20); White Blood Count 6.2 K/mm3 (4.5-10.0)
[2025-03-13 15:09] LABS: Alanine Aminotransferase 42 U/L (6-50); Albumin Level 4.9 g/dL (3.5-5.1); Alkaline Phosphatase 130 U/L (38-126); Anion Gap 10 mmol/L (4-12); Aspartate Amino Transferase 35 U/L (17-59); Bilirubin,Total 0.6 mg/dL (0.2-1.3); Blood Urea Nitrogen 18 mg/dL (9-20); Calcium 9.4 mg/dL (8.4-10.2); Carbon Dioxide 23 mmol/L (22-30); Chloride 105 mmol/L (98-107); Estimated CRCL calculation 104 ml/min; Estimated Glomerular Filt Rate > 60; Glucose 101 mg/dL (65-110); Lipase 49 U/L (23-300); Potassium 4.0 mmol/L (3.4-5.0); Sodium 138 mmol/L (137-145); Total Protein 8.2 g/dL (6.3-8.2)
[2025-03-13 15:15] LABS: Add Urine Microscopic? YES; Appearance Urine Clear (Clear); Glucose Urine UA Negative (Negative); Leukocyte Esterase Ur Negative LEU/UL (Negative); Nitrate Urine Negative (Negative); Non Pathogenic Casts 0-2; Specific Grav Ur 1.032 (1.001-1.035)
[2025-03-13 15:34] LABS: Influenza A QL RT-PCR Negative (Negative); Influenza B QL RT-PCR Negative (Negative); RSV RNA, RT-PCR Negative (Negative); SARS-CoV-2 RNA PCR Positive (Negative)
[2025-03-13 20:02] LABS: Creatine Kinase 119 U/L (55-170)
[2025-03-13 20:30] LABS: Thyroid Stimulating Hormone Reflex 2.670 uIU/mL (0.465-4.68)
== END 2025-03-13 16:36 | disposition home or self-care (01) ==
PROVIDERS: Emergency Provider Nurse Practitioner
DX: U07.1 COVID-19 (principal); I10 Essential (primary) hypertension; E89.0 Postprocedural hypothyroidism; K21.9 Gastro-esophageal reflux disease without esophagitis
CPT/HCPCS: 36415; 80053; 81001; 82550; 83605; 83690; 84443; 85025; 87040; 87637; 96360; 99283; J7030